=== PATIENT | female | born 1990 | race American Indian/Alaskan Native ===

== ENCOUNTER 2017-04-22 23:49 | Emergency (ER) | payer SELFPAY ==
[2017-04-22 23:59] VITALS: O2SAT 98
[2017-04-23 00:39] LABS: RBC URINE 2 /hpf (0-3); URINE BILIRUBIN NEGATIVE (NEGATIVE); URINE BLOOD NEGATIVE (NEGATIVE); URINE COLOR Yellow (YELLOW); URINE GLUCOSE (UA) NORMAL (Normal); URINE KETONE NEGATIVE (NEGATIVE); URINE LEUKOCYTE ESTERASE NEG Leu/uL (Negative); URINE PROTEIN NEGATIVE (NEGATIVE); WBC URINE 2 /hpf (0-5)
[2017-04-23] MEDS ORDERED: cefTRIAXone (Rocephin) 250 mg Inj IM STA (02:05)
--- NOTE | 2017-04-23 02:05 | C.PDOC ---
History Of Present Illness 26 year old female presents to the ER with a complaint of lower abdominal pain and foul smelling vaginal discharge. Patient states she had unprotected sex with her partner 2 weeks ago. Denies Hx of STD, dysuria, hematuria, fever, chills, nausea, or vomiting. Time Seen by Provider: 04/23/17 00:13 Chief Complaint (Nursing): Female Genitourinary History Per: Patient History/Exam Limitations: no limitations Onset/Duration Of Symptoms: Days Current Symptoms Are (Timing): Still Present Quality Of Discomfort: Unable To Describe Associated Symptoms: denies: Fever, Chills, Nausea, Vomiting, Urinary Symptoms Alleviating Factors: None Recent travel outside of the [place]: No Abnormal Vaginal Bleeding: No Past Medical History Reviewed: Historical Data, Nursing Documentation, Vital Signs Vital Signs: Last Vital Signs Temp 98.1 F 04/23/17 02:38 Pulse 84 04/23/17 02:38 Resp 16 04/23/17 02:38 BP 132/84 04/23/17 02:38 Pulse Ox 98 04/23/17 04:17 - Medical History PMH: No Chronic Diseases Surgical History: No Surg Hx Family History: States: Unknown Family Hx - Social History Hx Alcohol Use: Yes Hx Substance Use: Yes (MARIJUANA) - Immunization History Hx Tetanus Toxoid Vaccination: Yes Hx Influenza Vaccination: No Hx Pneumococcal Vaccination: No Review Of Systems Constitutional: Negative for: Fever, Chills Gastrointestinal: Positive for: Abdominal Pain. Negative for: Nausea, Vomiting Genitourinary: Positive for: Vaginal Discharge. Negative for: Dysuria, Frequency, Hematuria Physical Exam - Physical Exam Appears: Non-toxic, No Acute Distress Skin: Normal Color, Warm, Dry Head: Atraumatic, Normacephalic Oral Mucosa: Moist Chest: Symmetrical, No Tenderness Cardiovascular: Rhythm Regular Respiratory: Normal Breath Sounds, No Rales, No Rhonchi, No Wheezing Gastrointestinal/Abdominal: Soft, No Tenderness, No Guarding, No Rebound Back: No CVA Tenderness Pelvic: Normal External Exam, Vaginal Discharge (Thick white), Cervical Motion Tenderness, No Adnexal Tenderness, No Tender Uterus Neurological/Psych: Oriented x3, Normal Speech, Normal Cognition ED Course And Treatment O2 Sat by Pulse Oximetry: 98 (Room air) Pulse Ox Interpretation: Normal Medical Decision Making Medical Decision Making: pt with low ab pain, foul smelling vaginal discharge, s/p unprotected sex. +cmt , tx for cervicitis. 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 Recommend you do not have unprotected sex until further evaluated and full STD testing done. Instructions: Cervicitis (ED) Forms: [facility] (Croatian), General Discharge Instructions - Clinical Impression Clinical Impression: Cervicitis - Scribe Statement The provider has reviewed the documentation as recorded by the Scribe Nacho Carver All medical record entries made by the Scribe were at my direction and personally dictated by me. I have reviewed the chart and agree that the record accurately reflects my personal performance of the history, physical exam, medical decision making, and the department course for this patient. I have also personally directed, reviewed, and agree with the discharge instructions and disposition.
[2017-04-23 02:39] VITALS: BP 132/84; PULSE 84; RESP 16; TEMP 98.1
== END 2017-04-23 02:43 | disposition home or self-care (01) ==
LOC: C.ER 23:49
DX: N72 Inflammatory disease of cervix uteri (principal)
CPT/HCPCS: 81001; 87491; 87591; 96372; 99284; J0696

== ENCOUNTER 2017-08-18 13:23 | Inpatient (IN) | payer MEDICAID ==
[2017-08-18] MEDS ORDERED: Heparin25000 units/250ml 0.45% NS BAG IV ONE (13:31)
[2017-08-18] MEDS ORDERED: Iodixanol 320 MG/ML 200 ML BOTTLE IV ONE (13:51)
[2017-08-18] MEDS ORDERED: Metoprolol Succinate 50 mg XL Tab PO STA (13:51)
[2017-08-18] MEDS ORDERED: Aspirin 325 mg EC Tablets PO STA (13:51)
[2017-08-18] MEDS ORDERED: Nitroglycerin 2% Ointment Foilpak UD TOP STA (13:54)
[2017-08-18] MEDS ORDERED: Phenylephrine 10 mg/ml Inj ONE (13:55)
[2017-08-18] MEDS ORDERED: Nitroglycerin 2% Ointment Foilpak UD TOP ONE (13:58)
--- NOTE | 2017-08-18 14:07 | RAD ---
PROCEDURE: CHEST RADIOGRAPH, 1 VIEW HISTORY: Chest pain COMPARISON: None available. FINDINGS: LUNGS: The lungs are well inflated and clear. PLEURA: No pneumothorax or pleural fluid seen. CARDIOVASCULAR: Normal. OSSEOUS STRUCTURES: No significant abnormalities. VISUALIZED UPPER ABDOMEN: Normal. OTHER FINDINGS: None. IMPRESSION: No active pulmonary disease.
[2017-08-18 14:09] LABS: BASO # 0.1 K/uL (0.0-0.2); BASO % 0.6 % (0.0-2.0); EOS % 0.2 % (0.0-4.0); HEMOGLOBIN 11.8 g/dL (11.0-16.0); LYMPH # 2.8 K/uL (1.0-4.3); MEAN CELL VOLUME 79.6 fL (81.0-99.0); MEAN CORPUSCULAR HEMOGLOBIN 26.4 pg (27.0-31.0); MEAN CORPUSCULAR HGB CONC 33.2 g/dL (33.0-37.0); MEAN PLATELET VOLUME 8.3 fL (7.2-11.7); MONO # 0.6 K/uL (0.0-0.8); MONO % 6.1 % (0.0-10.0); NEUT # 7.1 K/uL (1.8-7.0); NEUT % 67.1 % (50.0-75.0); RBC 4.47 Mil/uL (3.80-5.20); RED CELL DISTRIBUTION WIDTH 15.7 % (11.5-14.5); WHITE BLOOD COUNT 10.6 K/uL (4.8-10.8)
[2017-08-18 14:18] LABS: INR 1.1; PROTHROMBIN TIME 12.7 SECONDS (9.7-12.2)
[2017-08-18] MEDS ORDERED: Heparin 25,000units in D5W 250 ML IV ONE (14:21)
[2017-08-18 14:31] LABS: ALBUMIN 4.3 g/dL (3.5-5.0); ALT/SGPT 32 U/L (9-52); AST/SGOT 30 U/L (14-36); BLOOD UREA NITROGEN 6 mg/dL (7-17); CALCIUM 9.1 mg/dl (8.6-10.4); GFR AFRICAN-AMERICAN > 60; GFR NON-AFRICAN AMERICAN > 60
[2017-08-18] MEDS ORDERED: Heparin25000 units/250ml 1/2NS 25,000 UNITS/250 ML BAG IV PRN (14:31)
[2017-08-18 14:43] LABS: B-TYPE NATRIURETIC PEPTIDE 131 pg/mL (0-450)
--- NOTE | 2017-08-18 14:46 | C.PDOC ---
History Of Present Illness 27 y/o female presents to the ER complaining of left sided chest pain which has been present for the past 2 days. Patient describes the pain as aching and rates the pain 8/10. Patient denies having SOB, radiation of CP, and cardiac hx. Patient denies using cigarettes and cocaine. Patient admits to occasional ETOH use.Patient notes that she has an unknown family hx as she does not know her parents.Of note, patient is working overnight and has gained weight by 4 pant sizes. Chief Complaint (Nursing): Chest Pain History Per: Patient History/Exam Limitations: no limitations Onset/Duration Of Symptoms: Days Current Symptoms Are (Timing): Still Present Severity: Moderate Quality: Aching Past Medical History Reviewed: Historical Data, Nursing Documentation, Vital Signs Vital Signs: Last Vital Signs Temp 98.4 F 08/18/17 16:32 Pulse 97 H 08/18/17 16:32 Resp 20 08/18/17 16:32 BP 132/83 08/18/17 16:32 Pulse Ox 100 08/18/17 18:16 - Medical History PMH: No Chronic Diseases Surgical History: No Surg Hx Family History: States: Unknown Family Hx - Social History Hx Alcohol Use: Yes Hx Substance Use: Yes (MARIJUANA) - Immunization History Hx Tetanus Toxoid Vaccination: Yes Hx Influenza Vaccination: No Hx Pneumococcal Vaccination: No Review Of Systems Except As Marked, All Systems Reviewed And Found Negative. Constitutional: Positive for: Other (+4 pant size weight gain ). Negative for: Fever, Chills Cardiovascular: Positive for: Chest Pain Respiratory: Negative for: Shortness of Breath Physical Exam - Physical Exam Appears: Non-toxic, No Acute Distress, Other (morbidly obese) Skin: Normal Color, Warm Head: Atraumatic, Normacephalic Nose: Normal Oral Mucosa: Moist Neck: Supple Chest: Symmetrical Cardiovascular: Rhythm Regular Respiratory: Normal Breath Sounds, No Rales, No Rhonchi, No Wheezing Neurological/Psych: Oriented x3, Normal Speech ED Course And Treatment - Laboratory Results Result Diagrams: 08/18/17 14:04 08/18/17 14:04 ECG: Interpreted By Me ECG Rhythm: Sinus Rhythm ECG Interpretation: Abnormal Interpretation Of ECG: EKG #1: ST elevations I, II, AVL, V4, v5, v6. diffuse, RI depressions throughout. (chest pain 8/10). EKG #2: same persistent changes ( chest pain 0/10) O2 Sat by Pulse Oximetry: 100 Pulse Ox Interpretation: Normal - Radiology CXR: Interpreted by Me CXR Interpretation: Yes: No Acute Disease - CT Scan/US CT-Chest Other Rad Studies (CT/US): Read By Radiologist, Radiology Report Reviewed CT/US Interpretation: IMPRESSION: Technically limited examination. Unable to exclude pulmonary embolism on the basis of this examination. No large central or lobar pulmonary embolus identified. No acute infiltrate. Medical Decision Making Medical Decision Makin: Code Heart called- CP 12/29, protocols instituted. protocol meds given 1335: texted EKG to Dr. Yi 1355: d/w Dr. Yi- defers Cath labs, prefers CT for PE and bedside cardiac ech 1355: d/w Dr. Light and Dr. Cho- will support as able 1405: chest pain zero 1415: d/w Dr. Cho- req bedside Card Echo, pending lab analyst 1440: d/w Dr. Cho- bedside echo reviewed as wnl, EKG with diffuse RI depressions and trop neg. d/c heparin drip and admit to [facility]. no Cath labs today, requests PE study 1450: d/w Hospitalist- Dr. Rubin- ok to admit. Disposition Doctor Will See Patient In The: Hospital Counseled Patient/Family Regarding: Studies Performed, Diagnosis - Disposition Disposition: HOSPITALIZED Disposition Time: 14:50 Condition: GOOD - POA Core Measure Indicators: Code Heart - Clinical Impression Clinical Impression: Chest pain - Scribe Statement The provider has reviewed the documentation as recorded by the Carlos Botello Provider Attestation: All medical record entries made by the Anaiibneymar were at my direction and personally dictated by me. I have reviewed the chart and agree that the record accurately reflects my personal performance of the history, physical exam, medical decision making, and the department course for this patient. I have also personally directed, reviewed, and agree with the discharge instructions and disposition.
[2017-08-18 14:47] LABS: SQUAMOUS EPITHIAL 20 /hpf (0-5); URINE BACTERIA RARE (<OCC); URINE BILIRUBIN NEGATIVE (NEGATIVE); URINE BLOOD 1+ (NEGATIVE); URINE CLARITY Hazy (Clear); URINE GLUCOSE (UA) NORMAL (Normal); URINE LEUKOCYTE ESTERASE 3+ Leu/uL (Negative); URINE PROTEIN NEGATIVE (NEGATIVE)
[2017-08-18 14:49] LABS: HCG,QUALITATIVE URINE NEGATIVE (NEGATIVE)
[2017-08-18 14:50] LABS: URINE COLOR YELLOW (YELLOW)
[2017-08-18 15:11] LABS: BARBITURATES, UR NEGATIVE (NEGATIVE); BENZODIAZEPINES, UR NEGATIVE (NEGATIVE); OPIATES, UR NEGATIVE (NEGATIVE); PHENCYCLIDINE, UR NEGATIVE (NEGATIVE)
[2017-08-18] MEDS ORDERED: Iodixanol 320 MG/ML 100 ML BOTTLE IV ONE (15:14)
--- NOTE | 2017-08-18 15:37 | RAD ---
HISTORY: Chest pain COMPARISON: 08/18/2017 at 1:59 p.m. FINDINGS: LUNGS: The lungs are clear. PLEURA: No significant pleural effusion identified, no pneumothorax apparent. CARDIOVASCULAR: Normal. OSSEOUS STRUCTURES: No significant abnormalities. VISUALIZED UPPER ABDOMEN: Normal. OTHER FINDINGS: None. IMPRESSION: No active pulmonary disease.
[2017-08-18 15:52] VITALS: RESP 20
--- NOTE | 2017-08-18 16:29 | CT ---
PROCEDURE: CT Chest with contrast (Pulmonary Angiogram) HISTORY: code heart v PE COMPARISON: None available. TECHNIQUE: Axial computed tomography images were obtained of the chest in the pulmonary arterial phase of enhancement. Coronal and sagittal reformatted images were created and reviewed. Intravenous contrast dose: 100 mL Visipaque 320 Radiation dose: Total exam DLP = 592.55 mGy-cm. This CT exam was performed using one or more of the following dose reduction techniques: Automated exposure control, adjustment of the mA and/or kV according to patient size, and/or use of iterative reconstruction technique. FINDINGS: PULMONARY ARTERIES: Evaluation technically limited. Unable to evaluate segmental and subsegmental pulmonary arteries on the basis of this examination. No large central or lobar pulmonary embolus identified. AORTA: No acute findings. No thoracic aortic aneurysm. LUNGS: No pulmonary infiltrate. Bilateral lower lobe linear scar/ atelectasis. Linear scar/ atelectasis also seen in the anterior right upper lobe and in right middle lobe, medially. No pulmonary mass. PLEURAL SPACES: Unremarkable. No effusion or pneuomothorax. HEART: Unremarkable. No cardiomegaly. No significant pericardial effusion. LYMPH NODES: No lymphadenopathy. BONES, CHEST WALL: Unremarkable. No fracture or destructive lesion OTHER FINDINGS: Unremarkable. IMPRESSION: Technically limited examination. Unable to exclude pulmonary embolism on the basis of this examination. No large central or lobar pulmonary embolus identified. No acute infiltrate.
--- NOTE | 2017-08-18 17:02 | CP.PCM.HP ---
<Chay Lr - Last Filed: 08/18/17 16:48> History of Present Illness - History of Present Illness History of Present Illness: PGY-1 H&P for Dr. Rubin CC: Chest Pain This is a 27 year old female with no significant PMHx who presented with left sided chest pain. Patient states that this began on Monday as she was waiting for the bus. Pain has been constant since then and has escalated to 10/ 10. Pain is described as a pressure like sensation without radiation. This is worsened with laying down. Patient is more comfortable sitting upright, and pain was relieved with when given aspirin. Patient states that she has some baseline dyspnea with exertion. She stated that she cannot walk far without getting short of breath. Patient does not sleep with more than one pillow at night and denied snoring. Patient reports that she had some chills yesterday and has a mild dry cough today. Patient denies other sick symptoms. PMHx: denies PSHx: right eyelid surgery in 2017 Allergies: NKDA Social: Denies tobacco, social drinker on the weekends. Uses marijuana. 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 Family Hx: Patient is unsure of her biological family history. PMD: denies Home meds: denies Present on Admission - Present on Admission Any Indicators Present on Admission: No Review of Systems - Constitutional Constitutional: Chills (yesterday). absent: Fever - EENT Eyes: absent: Change in Vision Ears: absent: Decreased Hearing Nose/Mouth/Throat: absent: Nasal Congestion - Cardiovascular Cardiovascular: Chest Pain. absent: Palpitations - Respiratory Respiratory: Cough (mild dry cough), Dyspnea (chronic with exertion) - Gastrointestinal Gastrointestinal: absent: Abdominal Pain, Constipation, Diarrhea, Nausea, Vomiting - Genitourinary Genitourinary: absent: Dysuria - Musculoskeletal Musculoskeletal: absent: Muscle Weakness - Integumentary Integumentary: absent: Rash - Neurological Neurological: absent: Dizziness, Weakness - Psychiatric Psychiatric: Anxiety - Endocrine Endocrine: absent: Palpitations Past Patient History - Infectious Disease Hx of Infectious Diseases: None - Past Social History Smoking Status: Never Smoked - PSYCHIATRIC Hx Substance Use: Yes (MARIJUANA) - SURGICAL HISTORY Hx Surgeries: No - ANESTHESIA Hx Anesthesia: No Meds Allergies/Adverse Reactions: Allergies Allergy/AdvReac Type Severity Reaction Status Date / Time No Known Allergies Allergy Verified 08/18/17 13:38 Physical Exam - Constitutional Appears: No Acute Distress - Head Exam Head Exam: ATRAUMATIC, NORMOCEPHALIC - Eye Exam Eye Exam: EOMI Pupil Exam: Mydriatic (Reactive to light) - ENT Exam ENT Exam: Mucous Membranes Moist - Respiratory Exam Respiratory Exam: Clear to Auscultation Bilateral, NORMAL BREATHING PATTERN. absent: Rales, Rhonchi, Wheezes - Cardiovascular Exam Cardiovascular Exam: REGULAR RHYTHM, +S1, +S2. absent: JVD - GI/Abdominal Exam GI & Abdominal Exam: Distended (obese body habitus), Normal Bowel Sounds, Soft. absent: Tenderness - Extremities Exam Extremities exam: Positive for: pedal edema (trace bilateral), pedal pulses present. Negative for: tenderness - Back Exam Back exam: absent: CVA tenderness (L), CVA tenderness (R) - Neurological Exam Neurological exam: Alert, CN II-XII Intact, Oriented x3 - Psychiatric Exam Psychiatric exam: Anxious - Skin Skin Exam: Dry, Warm Results - Vital Signs Recent Vital Signs: Last Vital Signs Temp 98.4 F 08/18/17 16:32 Pulse 97 H 08/18/17 16:32 Resp 20 08/18/17 16:32 BP 132/83 08/18/17 16:32 Pulse Ox 100 08/18/17 16:42 - Labs Result Diagrams: 08/18/17 14:04 08/18/17 14:04 Labs: Laboratory Results - last 24 hr 08/18/17 08/18/17 08/18/17 13:52 14:04 14:04 WBC 10.6 RBC 4.47 Hgb 11.8 Hct 35.6 MCV 79.6 L MCH 26.4 L MCHC 33.2 RDW 15.7 H Plt Count 286 MPV 8.3 Neut % (Auto) 67.1 Lymph % (Auto) 26.0 [place] % (Auto) 6.1 Eos % (Auto) 0.2 Baso % (Auto) 0.6 Neut # (Auto) 7.1 H Lymph # (Auto) 2.8 [place] # (Auto) 0.6 Eos # (Auto) 0.0 Baso # (Auto) 0.1 PT 12.7 H INR 1.1 APTT 29 D-Dimer, Quantitative Sodium Potassium Chloride Carbon Dioxide Anion Gap BUN Creatinine Est GFR ( Amer) Est GFR (Non-Af Amer) POC Glucose (mg/dL) 88 Random Glucose Hemoglobin A1c Calcium Total Bilirubin AST ALT Alkaline Phosphatase Troponin I NT-Pro-B Natriuret Pep Total Protein Albumin Globulin Albumin/Globulin Ratio Free T4 TSH 3rd Generation Beta HCG, Quant Urine Color Urine Clarity Urine pH Ur Specific [place] Urine Protein Urine Glucose (UA) Urine Ketones Urine Blood Urine Nitrate Urine Bilirubin Urine Urobilinogen Ur Leukocyte Esterase Urine WBC (Auto) Urine RBC (Auto) Ur Squamous Epith Cells Urine Bacteria Urine HCG, Qual Urine Opiates Screen Urine Methadone Screen Ur Barbiturates Screen Ur Phencyclidine Scrn Ur Amphetamines Screen U Benzodiazepines Scrn U Oth Cocaine Metabols U Cannabinoids Screen Blood Type Antibody Screen 08/18/17 08/18/17 08/18/17 14:04 14:04 14:04 WBC RBC Hgb Hct MCV MCH MCHC RDW Plt Count MPV Neut % (Auto) Lymph % (Auto) [place] % (Auto) Eos % (Auto) Baso % (Auto) Neut # (Auto) Lymph # (Auto) [place] # (Auto) Eos # (Auto) Baso # (Auto) PT INR APTT D-Dimer, Quantitative Sodium 142 Potassium 3.6 Chloride 102 Carbon Dioxide 24 Anion Gap 19 BUN 6 L Creatinine 0.7 Est GFR ( Amer) > 60 Est GFR (Non-Af Amer) > 60 POC Glucose (mg/dL) Random Glucose 87 Hemoglobin A1c Calcium 9.1 Total Bilirubin 0.9 AST 30 ALT 32 Alkaline Phosphatase 70 Troponin I < 0.0120 NT-Pro-B Natriuret Pep 131 Total Protein 8.6 H Albumin 4.3 Globulin 4.3 H Albumin/Globulin Ratio 1.0 Free T4 TSH 3rd Generation Beta HCG, Quant Urine Color Urine Clarity Urine pH Ur Specific [place] Urine Protein Urine Glucose (UA) Urine Ketones Urine Blood Urine Nitrate Urine Bilirubin Urine Urobilinogen Ur Leukocyte Esterase Urine WBC (Auto) Urine RBC (Auto) Ur Squamous Epith Cells Urine Bacteria Urine HCG, Qual Urine Opiates Screen Urine Methadone Screen Ur Barbiturates Screen Ur Phencyclidine Scrn Ur Amphetamines Screen U Benzodiazepines Scrn U Oth Cocaine Metabols U Cannabinoids Screen Blood Type AB POSITIVE Antibody Screen Negative 08/18/17 08/18/17 08/18/17 14:04 14:32 14:32 WBC RBC Hgb Hct MCV MCH MCHC RDW Plt Count MPV Neut % (Auto) Lymph % (Auto) [place] % (Auto) Eos % (Auto) Baso % (Auto) Neut # (Auto) Lymph # (Auto) [place] # (Auto) Eos # (Auto) Baso # (Auto) PT INR APTT D-Dimer, Quantitative Sodium Potassium Chloride Carbon Dioxide Anion Gap BUN Creatinine Est GFR ( Amer) Est GFR (Non-Af Amer) POC Glucose (mg/dL) Random Glucose Hemoglobin A1c Calcium Total Bilirubin AST ALT Alkaline Phosphatase Troponin I NT-Pro-B Natriuret Pep Total Protein Albumin Globulin Albumin/Globulin Ratio Free T4 TSH 3rd Generation Beta HCG, Quant < 2.39 Urine Color Yellow Urine Clarity Hazy Urine pH 5.0 Ur Specific [place] 1.018 Urine Protein Negative Urine Glucose (UA) Normal Urine Ketones 1+ H Urine Blood 1+ H Urine Nitrate Negative Urine Bilirubin Negative Urine Urobilinogen 4.0 H Ur Leukocyte Esterase 3+ H Urine WBC (Auto) 13 H Urine RBC (Auto) 3 Ur Squamous Epith Cells 20 H Urine Bacteria Rare Urine HCG, Qual Negative Urine Opiates Screen Negative Urine Methadone Screen Negative Ur Barbiturates Screen Negative Ur Phencyclidine Scrn Negative Ur Amphetamines Screen Negative U Benzodiazepines Scrn Negative U Oth Cocaine Metabols Negative U Cannabinoids Screen Positive H Blood Type Antibody Screen 08/18/17 08/18/17 08/18/17 15:15 15:15 15:35 WBC RBC Hgb Hct MCV MCH MCHC RDW Plt Count MPV Neut % (Auto) Lymph % (Auto) [place] % (Auto) Eos % (Auto) Baso % (Auto) Neut # (Auto) Lymph # (Auto) [place] # (Auto) Eos # (Auto) Baso # (Auto) PT INR APTT D-Dimer, Quantitative 996 H Sodium Potassium Chloride Carbon Dioxide Anion Gap BUN Creatinine Est GFR ( Amer) Est GFR (Non-Af Amer) POC Glucose (mg/dL) Random Glucose Hemoglobin A1c 5.7 Calcium Total Bilirubin AST ALT Alkaline Phosphatase Troponin I NT-Pro-B Natriuret Pep Total Protein Albumin Globulin Albumin/Globulin Ratio Free T4 0.85 TSH 3rd Generation Beta HCG, Quant Urine Color Urine Clarity Urine pH Ur Specific [place] Urine Protein Urine Glucose (UA) Urine Ketones Urine Blood Urine Nitrate Urine Bilirubin Urine Urobilinogen Ur Leukocyte Esterase Urine WBC (Auto) Urine RBC (Auto) Ur Squamous Epith Cells Urine Bacteria Urine HCG, Qual Urine Opiates Screen Urine Methadone Screen Ur Barbiturates Screen Ur Phencyclidine Scrn Ur Amphetamines Screen U Benzodiazepines Scrn U Oth Cocaine Metabols U Cannabinoids Screen Blood Type Antibody Screen 08/18/17 15:40 WBC RBC Hgb Hct MCV MCH MCHC RDW Plt Count MPV Neut % (Auto) Lymph % (Auto) [place] % (Auto) Eos % (Auto) Baso % (Auto) Neut # (Auto) Lymph # (Auto) [place] # (Auto) Eos # (Auto) Baso # (Auto) PT INR APTT D-Dimer, Quantitative Sodium Potassium Chloride Carbon Dioxide Anion Gap BUN Creatinine Est GFR ( Amer) Est GFR (Non-Af Amer) POC Glucose (mg/dL) Random Glucose Hemoglobin A1c Calcium Total Bilirubin AST ALT Alkaline Phosphatase Troponin I NT-Pro-B Natriuret Pep Total Protein Albumin Globulin Albumin/Globulin Ratio Free T4 TSH 3rd Generation 1.40 Beta HCG, Quant Urine Color Urine Clarity Urine pH Ur Specific [place] Urine Protein Urine Glucose (UA) Urine Ketones Urine Blood Urine Nitrate Urine Bilirubin Urine Urobilinogen Ur Leukocyte Esterase Urine WBC (Auto) Urine RBC (Auto) Ur Squamous Epith Cells Urine Bacteria Urine HCG, Qual Urine Opiates Screen Urine Methadone Screen Ur Barbiturates Screen Ur Phencyclidine Scrn Ur Amphetamines Screen U Benzodiazepines Scrn U Oth Cocaine Metabols U Cannabinoids Screen Blood Type Antibody Screen Assessment & Plan - Assessment and Plan (Free Text) Plan: Pericarditis Cardiology consult, Dr. Cho, help appreciated Recommendations as follows: * Aspirin 325 mg PO BID for 1 month * Colchicine 0.6 mg PO daily for 14 days * Pepcid 20 mg PO BID Bedside echo normal ventricular function per cardiology EKG showing diffuse ST segment elevations in non-specific pattern and first troponin negative f/u DIANE panel and EKGx2 f/u Lipid panel f/u thyroid studies CTA chest PE protocol shows no large central PE but cannot rule out segmental and subsegmental ones Asymptomatic Bacteruria Repeat UA in the AM Elevated Blood Pressure Possibly due to pain versus essential hypertension Was given Toprol XL 50 mg in the ED Monitor BP Impaired Glucose Tolerance Hemoglobin A1c 5.7 Dietitian Referral Prophylaxis Heart Healthy Diet 2gm sodium Pepcid 20 mg PO BID Lovenox 40 mg SC daily Discussed with Dr. Caryn Lr PGY-1 <Fawn Rubin V - Last Filed: 08/18/17 21:56> Results - Vital Signs Recent Vital Signs: Last Vital Signs Temp 98.4 F 08/18/17 16:32 Pulse 88 08/18/17 18:34 Resp 20 08/18/17 16:32 BP 132/83 08/18/17 16:32 Pulse Ox 100 08/18/17 18:17 - Labs Result Diagrams: 08/18/17 14:04 08/18/17 14:04 Labs: Laboratory Results - last 24 hr 08/18/17 08/18/17 08/18/17 13:52 14:04 14:04 WBC 10.6 RBC 4.47 Hgb 11.8 Hct 35.6 MCV 79.6 L MCH 26.4 L MCHC 33.2 RDW 15.7 H Plt Count 286 MPV 8.3 Neut % (Auto) 67.1 Lymph % (Auto) 26.0 [place] % (Auto) 6.1 Eos % (Auto) 0.2 Baso % (Auto) 0.6 Neut # (Auto) 7.1 H Lymph # (Auto) 2.8 [place] # (Auto) 0.6 Eos # (Auto) 0.0 Baso # (Auto) 0.1 PT 12.7 H INR 1.1 APTT 29 D-Dimer, Quantitative Sodium Potassium Chloride Carbon Dioxide Anion Gap BUN Creatinine Est GFR ( Amer) Est GFR (Non-Af Amer) POC Glucose (mg/dL) 88 Random Glucose Hemoglobin A1c Calcium Total Bilirubin AST ALT Alkaline Phosphatase Total Creatine Kinase CK-MB (Mass) Troponin I NT-Pro-B Natriuret Pep Total Protein Albumin Globulin Albumin/Globulin Ratio Free T4 TSH 3rd Generation Beta HCG, Quant Urine Color Urine Clarity Urine pH Ur Specific [place] Urine Protein Urine Glucose (UA) Urine Ketones Urine Blood Urine Nitrate Urine Bilirubin Urine Urobilinogen Ur Leukocyte Esterase Urine WBC (Auto) Urine RBC (Auto) Ur Squamous Epith Cells Urine Bacteria Urine HCG, Qual Urine Opiates Screen Urine Methadone Screen Ur Barbiturates Screen Ur Phencyclidine Scrn Ur Amphetamines Screen U Benzodiazepines Scrn U Oth Cocaine Metabols U Cannabinoids Screen Blood Type Antibody Screen 08/18/17 08/18/17 08/18/17 14:04 14:04 14:04 WBC RBC Hgb Hct MCV MCH MCHC RDW Plt Count MPV Neut % (Auto) Lymph % (Auto) [place] % (Auto) Eos % (Auto) Baso % (Auto) Neut # (Auto) Lymph # (Auto) [place] # (Auto) Eos # (Auto) Baso # (Auto) PT INR APTT D-Dimer, Quantitative Sodium 142 Potassium 3.6 Chloride 102 Carbon Dioxide 24 Anion Gap 19 BUN 6 L Creatinine 0.7 Est GFR ( Amer) > 60 Est GFR (Non-Af Amer) > 60 POC Glucose (mg/dL) Random Glucose 87 Hemoglobin A1c Calcium 9.1 Total Bilirubin 0.9 AST 30 ALT 32 Alkaline Phosphatase 70 Total Creatine Kinase CK-MB (Mass) Troponin I < 0.0120 NT-Pro-B Natriuret Pep 131 Total Protein 8.6 H Albumin 4.3 Globulin 4.3 H Albumin/Globulin Ratio 1.0 Free T4 TSH 3rd Generation Beta HCG, Quant Urine Color Urine Clarity Urine pH Ur Specific [place] Urine Protein Urine Glucose (UA) Urine Ketones Urine Blood Urine Nitrate Urine Bilirubin Urine Urobilinogen Ur Leukocyte Esterase Urine WBC (Auto) Urine RBC (Auto) Ur Squamous Epith Cells Urine Bacteria Urine HCG, Qual Urine Opiates Screen Urine Methadone Screen Ur Barbiturates Screen Ur Phencyclidine Scrn Ur Amphetamines Screen U Benzodiazepines Scrn U Oth Cocaine Metabols U Cannabinoids Screen Blood Type AB POSITIVE Antibody Screen Negative 08/18/17 08/18/17 08/18/17 14:04 14:32 14:32 WBC RBC Hgb Hct MCV MCH MCHC RDW Plt Count MPV Neut % (Auto) Lymph % (Auto) [place] % (Auto) Eos % (Auto) Baso % (Auto) Neut # (Auto) Lymph # (Auto) [place] # (Auto) Eos # (Auto) Baso # (Auto) PT INR APTT D-Dimer, Quantitative Sodium Potassium Chloride Carbon Dioxide Anion Gap BUN Creatinine Est GFR ( Amer) Est GFR (Non-Af Amer) POC Glucose (mg/dL) Random Glucose Hemoglobin A1c Calcium Total Bilirubin AST ALT Alkaline Phosphatase Total Creatine Kinase CK-MB (Mass) Troponin I NT-Pro-B Natriuret Pep Total Protein Albumin Globulin Albumin/Globulin Ratio Free T4 TSH 3rd Generation Beta HCG, Quant < 2.39 Urine Color Yellow Urine Clarity Hazy Urine pH 5.0 Ur Specific [place] 1.018 Urine Protein Negative Urine Glucose (UA) Normal Urine Ketones 1+ H Urine Blood 1+ H Urine Nitrate Negative Urine Bilirubin Negative Urine Urobilinogen 4.0 H Ur Leukocyte Esterase 3+ H Urine WBC (Auto) 13 H Urine RBC (Auto) 3 Ur Squamous Epith Cells 20 H Urine Bacteria Rare Urine HCG, Qual Negative Urine Opiates Screen Negative Urine Methadone Screen Negative Ur Barbiturates Screen Negative Ur Phencyclidine Scrn Negative Ur Amphetamines Screen Negative U Benzodiazepines Scrn Negative U Oth Cocaine Metabols Negative U Cannabinoids Screen Positive H Blood Type Antibody Screen 08/18/17 08/18/17 08/18/17 15:15 15:15 15:35 WBC RBC Hgb Hct MCV MCH MCHC RDW Plt Count MPV Neut % (Auto) Lymph % (Auto) [place] % (Auto) Eos % (Auto) Baso % (Auto) Neut # (Auto) Lymph # (Auto) [place] # (Auto) Eos # (Auto) Baso # (Auto) PT INR APTT D-Dimer, Quantitative 996 H Sodium Potassium Chloride Carbon Dioxide Anion Gap BUN Creatinine Est GFR ( Amer) Est GFR (Non-Af Amer) POC Glucose (mg/dL) Random Glucose Hemoglobin A1c 5.7 Calcium Total Bilirubin AST ALT Alkaline Phosphatase Total Creatine Kinase CK-MB (Mass) Troponin I NT-Pro-B Natriuret Pep Total Protein Albumin Globulin Albumin/Globulin Ratio Free T4 0.85 TSH 3rd Generation Beta HCG, Quant Urine Color Urine Clarity Urine pH Ur Specific [place] Urine Protein Urine Glucose (UA) Urine Ketones Urine Blood Urine Nitrate Urine Bilirubin Urine Urobilinogen Ur Leukocyte Esterase Urine WBC (Auto) Urine RBC (Auto) Ur Squamous Epith Cells Urine Bacteria Urine HCG, Qual Urine Opiates Screen Urine Methadone Screen Ur Barbiturates Screen Ur Phencyclidine Scrn Ur Amphetamines Screen U Benzodiazepines Scrn U Oth Cocaine Metabols U Cannabinoids Screen Blood Type Antibody Screen 08/18/17 08/18/17 15:40 20:14 WBC RBC Hgb Hct MCV MCH MCHC RDW Plt Count MPV Neut % (Auto) Lymph % (Auto) [place] % (Auto) Eos % (Auto) Baso % (Auto) Neut # (Auto) Lymph # (Auto) [place] # (Auto) Eos # (Auto) Baso # (Auto) PT INR APTT D-Dimer, Quantitative Sodium Potassium Chloride Carbon Dioxide Anion Gap BUN Creatinine Est GFR ( Amer) Est GFR (Non-Af Amer) POC Glucose (mg/dL) Random Glucose Hemoglobin A1c Calcium Total Bilirubin AST ALT Alkaline Phosphatase Total Creatine Kinase 143 H CK-MB (Mass) < 0.22 Troponin I < 0.0120 NT-Pro-B Natriuret Pep Total Protein Albumin Globulin Albumin/Globulin Ratio Free T4 TSH 3rd Generation 1.40 Beta HCG, Quant Urine Color Urine Clarity Urine pH Ur Specific [place] Urine Protein Urine Glucose (UA) Urine Ketones Urine Blood Urine Nitrate Urine Bilirubin Urine Urobilinogen Ur Leukocyte Esterase Urine WBC (Auto) Urine RBC (Auto) Ur Squamous Epith Cells Urine Bacteria Urine HCG, Qual Urine Opiates Screen Urine Methadone Screen Ur Barbiturates Screen Ur Phencyclidine Scrn Ur Amphetamines Screen U Benzodiazepines Scrn U Oth Cocaine Metabols U Cannabinoids Screen Blood Type Antibody Screen Attending/Attestation - Attestation I have personally seen and examined this patient.: Yes I have fully participated in the care of the patient.: Yes I have reviewed all pertinent clinical information: Yes Notes (Text): Patient seen, examined and case discussed with emergency room physician, cardiology, and medical equipment repair technician. As part of [facility] protocol, I responded to [facility] called for this patient which what appeared to be [facility] [place] [place] initially. Discussion between ER, assistant principal managing partner [employer] [place], Dr Yi, and chalk machine operator Dr. Cho in regards to further management. Dr. Yi hold cath, review labs and PE protocol to rule out PE. Dr. Cho had performed bedside echo which appear heart LV is normal. Cath cancelled. Reviewed EKG determined EKG to reflect pericarditis. Per [facility] protocol, patient received brilinta 180mg PO X1, Heparin bolus, heparin drip. Patient also received Toprol XL 50mg X1, and Nitrobid. Following Nitrobid chest pain resolved. Patient is a 27 year old Female no prior medical history except for obesity who reported chest pain that started Monday night and continued to this morning which prompted her to come to the emergency room. Patient reports she attempted Advil liquid and mother's albuterol to try to relieve her symptoms yesterday. Patient reports she has recently lost her insurance and has not seen a doctor in year. 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 Patient admits to cannabis use, and recently drank alcohol this past Monday. Patient denies ilict drug use. Patient is unable to tell me her family medical history at bedside. Patient reports she is gaining weight, has recently gone up in four pants sizes. ED has discussed with cardiology, admit to hospitalist service. Resident has spoken with resident Rahul, on cardiology service, Dr Cho, recommendations for pericarditis as listed below. Patient has elevated d-dimer, CT angio PE ordered. Ct angio does not show large central nor lobar pulmonary embolus identified. no acute infiltrate. Assessment/Plan 1) Pericarditis Chest Pain * Cardiology consult, Dr. Cho, help appreciated * Recommendations as follows: * Aspirin 325 mg PO BID for 1 month * Colchicine 0.6 mg PO daily for 14 days * Pepcid 20 mg PO BID * Bedside echo normal ventricular function per cardiology in the emergency room * EKG showing diffuse ST segment elevations in non-specific pattern and first troponin negative * f/u DIANE panel and EKGx2, 6 hours apart * f/u Lipid panel in AM * f/u thyroid studies * CTA chest PE protocol shows no large central PE but cannot rule out segmental and subsegmental ones * Will order gentle IV hydration to prevent contrast induced nephropathy 2) Asymptomatic Bacteruria * Repeat UA in the AM 3) Elevated Blood Pressure * Possibly due to pain versus essential hypertension * Was given Toprol XL 50 mg in the ED * Monitor BP 4) Impaired Glucose Tolerance * Hemoglobin A1c 5.7 * Dietitian Referral * Will need education in terms of lifestyle modifications to prevent overt diabetes 5) Obesity * Lipid panel in AM * Hemoglobin A1c 5.7 * f/u TSH and Free T4 6) Prophylaxis * Heart Healthy Diet 2gm sodium * Pepcid 20 mg PO BID * Lovenox 40 mg SC daily
[2017-08-18] MEDS ORDERED: Sodium Chloride 0.9% 1,000 ML IV SCH (19:15)
[2017-08-18 20:46] LABS: CK-MB < 0.22 ng/mL (0.0-3.38)
--- NOTE | 2017-08-18 21:42 | CP.PCM.CON ---
History of Present Illness - History of Present Illness History of Present Illness: CC: Chest Pain This is a 27 year old female with no significant PMHx who presented with left sided chest pain. Patient states that this began on Monday as she was waiting for the bus. Pain has been constant since then and has escalated to 10/ 10. Pain is described as a pressure like sensation without radiation. This is worsened with laying down. Patient is more comfortable sitting upright, and pain was relieved with when given aspirin. Patient states that she has some baseline dyspnea with exertion. She stated that she cannot walk far without getting short of breath. Patient does not sleep with more than one pillow at night and denied snoring. Patient reports that she had some chills yesterday and has a mild dry cough today. Patient denies other sick symptoms. PMHx: denies PSHx: right eyelid surgery in 2017 Allergies: NKDA Social: Denies tobacco, social drinker on the weekends. Uses marijuana. 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 Family Hx: Patient is unsure of her biological family history. PMD: denies Home meds: denies Present on Admission - Present on Admission Any Indicators Present on Admission: No Review of Systems - Constitutional Constitutional: Chills (yesterday). absent: Fever - EENT Eyes: absent: Change in Vision Ears: absent: Decreased Hearing Nose/Mouth/Throat: absent: Nasal Congestion - Cardiovascular Cardiovascular: Chest Pain. absent: Palpitations - Respiratory Respiratory: Cough (mild dry cough), Dyspnea (chronic with exertion) - Gastrointestinal Gastrointestinal: absent: Abdominal Pain, Constipation, Diarrhea, Nausea, Vomiting - Genitourinary Genitourinary: absent: Dysuria - Musculoskeletal Musculoskeletal: absent: Muscle Weakness - Integumentary Integumentary: absent: Rash - Neurological Neurological: absent: Dizziness, Weakness - Psychiatric Psychiatric: Anxiety - Endocrine Endocrine: absent: Palpitations Past Patient History - Infectious Disease Hx of Infectious Diseases: None - Past Social History Smoking Status: Never Smoked - PSYCHIATRIC Hx Substance Use: Yes (MARIJUANA) - SURGICAL HISTORY Hx Surgeries: No - ANESTHESIA Hx Anesthesia: No Meds Allergies/Adverse Reactions: Allergies Allergy/AdvReac Type Severity Reaction Status Date / Time No Known Allergies Allergy Verified 08/18/17 13:38 Physical Exam - Constitutional Appears: No Acute Distress - Head Exam Head Exam: ATRAUMATIC, NORMOCEPHALIC - Eye Exam Eye Exam: EOMI Pupil Exam: Mydriatic (Reactive to light) - ENT Exam ENT Exam: Mucous Membranes Moist - Respiratory Exam Respiratory Exam: Clear to Auscultation Bilateral, NORMAL BREATHING PATTERN. absent: Rales, Rhonchi, Wheezes - Cardiovascular Exam Cardiovascular Exam: REGULAR RHYTHM, +S1, +S2. absent: JVD - GI/Abdominal Exam GI & Abdominal Exam: Distended (obese body habitus), Normal Bowel Sounds, Soft. absent: Tenderness - Extremities Exam Extremities exam: Positive for: pedal edema (trace bilateral), pedal pulses present. Negative for: tenderness - Back Exam Back exam: absent: CVA tenderness (L), CVA tenderness (R) - Neurological Exam Neurological exam: Alert, CN II-XII Intact, Oriented x3 - Psychiatric Exam Psychiatric exam: Anxious - Skin Skin Exam: Dry, Warm Past Patient History - Infectious Disease Hx of Infectious Diseases: None - Past Social History Smoking Status: Never Smoked - MUSCULOSKELETAL/RHEUMATOLOGICAL Hx Falls: No - PSYCHIATRIC Hx Substance Use: Yes (marijuana) - SURGICAL HISTORY Hx Surgeries: No - ANESTHESIA Hx Anesthesia: No Meds Allergies/Adverse Reactions: Allergies Allergy/AdvReac Type Severity Reaction Status Date / Time No Known Allergies Allergy Verified 08/18/17 13:38 - Medications Medications: Current Medications Acetaminophen (Tylenol 325mg Tab) 650 mg PO Q6 PRN PRN Reason: pain, fever Aspirin (Aspirin) 325 mg PO BID ON LICENSE OF [facility] Colchicine (Colocrys) 0.6 mg PO DAILY ON LICENSE OF [facility] Last Admin: 08/18/17 18:07 Dose: 0.6 mg Enoxaparin Sodium (Lovenox) 40 mg SC DAILY ON LICENSE OF [facility] Famotidine (Pepcid) 20 mg PO BID ON LICENSE OF [facility] Last Admin: 08/18/17 17:26 Dose: Not Given Sodium Chloride (Sodium Chloride 0.9%) 1,000 mls @ 50 mls/hr IV .Q20H ON LICENSE OF [facility] Stop: 08/19/17 00:01 Last Admin: 08/18/17 19:46 Dose: 50 mls/hr Results - Vital Signs Recent Vital Signs: Last Vital Signs Temp 98.4 F 08/18/17 16:32 Pulse 88 08/18/17 18:34 Resp 20 08/18/17 16:32 BP 132/83 08/18/17 16:32 Pulse Ox 100 08/18/17 18:17 - Labs Result Diagrams: 08/18/17 14:04 08/18/17 14:04 Labs: Laboratory Results - last 24 hr 08/18/17 08/18/17 08/18/17 13:52 14:04 14:04 WBC 10.6 RBC 4.47 Hgb 11.8 Hct 35.6 MCV 79.6 L MCH 26.4 L MCHC 33.2 RDW 15.7 H Plt Count 286 MPV 8.3 Neut % (Auto) 67.1 Lymph % (Auto) 26.0 [place] % (Auto) 6.1 Eos % (Auto) 0.2 Baso % (Auto) 0.6 Neut # (Auto) 7.1 H Lymph # (Auto) 2.8 [place] # (Auto) 0.6 Eos # (Auto) 0.0 Baso # (Auto) 0.1 PT 12.7 H INR 1.1 APTT 29 D-Dimer, Quantitative Sodium Potassium Chloride Carbon Dioxide Anion Gap BUN Creatinine Est GFR ( Amer) Est GFR (Non-Af Amer) POC Glucose (mg/dL) 88 Random Glucose Hemoglobin A1c Calcium Total Bilirubin AST ALT Alkaline Phosphatase Total Creatine Kinase CK-MB (Mass) Troponin I NT-Pro-B Natriuret Pep Total Protein Albumin Globulin Albumin/Globulin Ratio Free T4 TSH 3rd Generation Beta HCG, Quant Urine Color Urine Clarity Urine pH Ur Specific [place] Urine Protein Urine Glucose (UA) Urine Ketones Urine Blood Urine Nitrate Urine Bilirubin Urine Urobilinogen Ur Leukocyte Esterase Urine WBC (Auto) Urine RBC (Auto) Ur Squamous Epith Cells Urine Bacteria Urine HCG, Qual Urine Opiates Screen Urine Methadone Screen Ur Barbiturates Screen Ur Phencyclidine Scrn Ur Amphetamines Screen U Benzodiazepines Scrn U Oth Cocaine Metabols U Cannabinoids Screen Blood Type Antibody Screen 08/18/17 08/18/17 08/18/17 14:04 14:04 14:04 WBC RBC Hgb Hct MCV MCH MCHC RDW Plt Count MPV Neut % (Auto) Lymph % (Auto) [place] % (Auto) Eos % (Auto) Baso % (Auto) Neut # (Auto) Lymph # (Auto) [place] # (Auto) Eos # (Auto) Baso # (Auto) PT INR APTT D-Dimer, Quantitative Sodium 142 Potassium 3.6 Chloride 102 Carbon Dioxide 24 Anion Gap 19 BUN 6 L Creatinine 0.7 Est GFR ( Amer) > 60 Est GFR (Non-Af Amer) > 60 POC Glucose (mg/dL) Random Glucose 87 Hemoglobin A1c Calcium 9.1 Total Bilirubin 0.9 AST 30 ALT 32 Alkaline Phosphatase 70 Total Creatine Kinase CK-MB (Mass) Troponin I < 0.0120 NT-Pro-B Natriuret Pep 131 Total Protein 8.6 H Albumin 4.3 Globulin 4.3 H Albumin/Globulin Ratio 1.0 Free T4 TSH 3rd Generation Beta HCG, Quant Urine Color Urine Clarity Urine pH Ur Specific [place] Urine Protein Urine Glucose (UA) Urine Ketones Urine Blood Urine Nitrate Urine Bilirubin Urine Urobilinogen Ur Leukocyte Esterase Urine WBC (Auto) Urine RBC (Auto) Ur Squamous Epith Cells Urine Bacteria Urine HCG, Qual Urine Opiates Screen Urine Methadone Screen Ur Barbiturates Screen Ur Phencyclidine Scrn Ur Amphetamines Screen U Benzodiazepines Scrn U Oth Cocaine Metabols U Cannabinoids Screen Blood Type AB POSITIVE Antibody Screen Negative 08/18/17 08/18/17 08/18/17 14:04 14:32 14:32 WBC RBC Hgb Hct MCV MCH MCHC RDW Plt Count MPV Neut % (Auto) Lymph % (Auto) [place] % (Auto) Eos % (Auto) Baso % (Auto) Neut # (Auto) Lymph # (Auto) [place] # (Auto) Eos # (Auto) Baso # (Auto) PT INR APTT D-Dimer, Quantitative Sodium Potassium Chloride Carbon Dioxide Anion Gap BUN Creatinine Est GFR ( Amer) Est GFR (Non-Af Amer) POC Glucose (mg/dL) Random Glucose Hemoglobin A1c Calcium Total Bilirubin AST ALT Alkaline Phosphatase Total Creatine Kinase CK-MB (Mass) Troponin I NT-Pro-B Natriuret Pep Total Protein Albumin Globulin Albumin/Globulin Ratio Free T4 TSH 3rd Generation Beta HCG, Quant < 2.39 Urine Color Yellow Urine Clarity Hazy Urine pH 5.0 Ur Specific [place] 1.018 Urine Protein Negative Urine Glucose (UA) Normal Urine Ketones 1+ H Urine Blood 1+ H Urine Nitrate Negative Urine Bilirubin Negative Urine Urobilinogen 4.0 H Ur Leukocyte Esterase 3+ H Urine WBC (Auto) 13 H Urine RBC (Auto) 3 Ur Squamous Epith Cells 20 H Urine Bacteria Rare Urine HCG, Qual Negative Urine Opiates Screen Negative Urine Methadone Screen Negative Ur Barbiturates Screen Negative Ur Phencyclidine Scrn Negative Ur Amphetamines Screen Negative U Benzodiazepines Scrn Negative U Oth Cocaine Metabols Negative U Cannabinoids Screen Positive H Blood Type Antibody Screen 08/18/17 08/18/17 08/18/17 15:15 15:15 15:35 WBC RBC Hgb Hct MCV MCH MCHC RDW Plt Count MPV Neut % (Auto) Lymph % (Auto) [place] % (Auto) Eos % (Auto) Baso % (Auto) Neut # (Auto) Lymph # (Auto) [place] # (Auto) Eos # (Auto) Baso # (Auto) PT INR APTT D-Dimer, Quantitative 996 H Sodium Potassium Chloride Carbon Dioxide Anion Gap BUN Creatinine Est GFR ( Amer) Est GFR (Non-Af Amer) POC Glucose (mg/dL) Random Glucose Hemoglobin A1c 5.7 Calcium Total Bilirubin AST ALT Alkaline Phosphatase Total Creatine Kinase CK-MB (Mass) Troponin I NT-Pro-B Natriuret Pep Total Protein Albumin Globulin Albumin/Globulin Ratio Free T4 0.85 TSH 3rd Generation Beta HCG, Quant Urine Color Urine Clarity Urine pH Ur Specific [place] Urine Protein Urine Glucose (UA) Urine Ketones Urine Blood Urine Nitrate Urine Bilirubin Urine Urobilinogen Ur Leukocyte Esterase Urine WBC (Auto) Urine RBC (Auto) Ur Squamous Epith Cells Urine Bacteria Urine HCG, Qual Urine Opiates Screen Urine Methadone Screen Ur Barbiturates Screen Ur Phencyclidine Scrn Ur Amphetamines Screen U Benzodiazepines Scrn U Oth Cocaine Metabols U Cannabinoids Screen Blood Type Antibody Screen 08/18/17 08/18/17 15:40 20:14 WBC RBC Hgb Hct MCV MCH MCHC RDW Plt Count MPV Neut % (Auto) Lymph % (Auto) [place] % (Auto) Eos % (Auto) Baso % (Auto) Neut # (Auto) Lymph # (Auto) [place] # (Auto) Eos # (Auto) Baso # (Auto) PT INR APTT D-Dimer, Quantitative Sodium Potassium Chloride Carbon Dioxide Anion Gap BUN Creatinine Est GFR ( Amer) Est GFR (Non-Af Amer) POC Glucose (mg/dL) Random Glucose Hemoglobin A1c Calcium Total Bilirubin AST ALT Alkaline Phosphatase Total Creatine Kinase 143 H CK-MB (Mass) < 0.22 Troponin I < 0.0120 NT-Pro-B Natriuret Pep Total Protein Albumin Globulin Albumin/Globulin Ratio Free T4 TSH 3rd Generation 1.40 Beta HCG, Quant Urine Color Urine Clarity Urine pH Ur Specific [place] Urine Protein Urine Glucose (UA) Urine Ketones Urine Blood Urine Nitrate Urine Bilirubin Urine Urobilinogen Ur Leukocyte Esterase Urine WBC (Auto) Urine RBC (Auto) Ur Squamous Epith Cells Urine Bacteria Urine HCG, Qual Urine Opiates Screen Urine Methadone Screen Ur Barbiturates Screen Ur Phencyclidine Scrn Ur Amphetamines Screen U Benzodiazepines Scrn U Oth Cocaine Metabols U Cannabinoids Screen Blood Type Antibody Screen Assessment & Plan - Assessment and Plan (Free Text) Assessment: EKG suggestive of likely percarditis Not a STEMI ECHO: Normal LV function Management of pericarditis as suggested R/O PE (High D dimer)
[2017-08-19 03:40] LABS: CK-MB 0.24 ng/mL (0.0-3.38)
[2017-08-19 08:17] LABS: BASO % 0.4 % (0.0-2.0); EOS # 0.1 K/uL (0.0-0.7); EOS % 1.1 % (0.0-4.0); HEMOGLOBIN 11.8 g/dL (11.0-16.0); LYMPH # 2.2 K/uL (1.0-4.3); LYMPH % 26.1 % (20.0-40.0); MEAN CELL VOLUME 79.3 fL (81.0-99.0); MEAN CORPUSCULAR HEMOGLOBIN 26.4 pg (27.0-31.0); MEAN CORPUSCULAR HGB CONC 33.2 g/dL (33.0-37.0); MEAN PLATELET VOLUME 8.4 fL (7.2-11.7); MONO # 0.5 K/uL (0.0-0.8); MONO % 6.1 % (0.0-10.0); NEUT # 5.5 K/uL (1.8-7.0); NEUT % 66.3 % (50.0-75.0); RBC 4.49 Mil/uL (3.80-5.20); RED CELL DISTRIBUTION WIDTH 15.1 % (11.5-14.5); WHITE BLOOD COUNT 8.2 K/uL (4.8-10.8)
--- NOTE | 2017-08-19 08:20 | CP.PCM.PN ---
<Raina Brennan - Last Filed: 08/19/17 11:19> Subjective - Date & Time of Evaluation Date of Evaluation: 08/19/17 Time of Evaluation: 08:03 - Subjective Subjective: Progress Note Patient seen and examined at bedside. No acute events overnight. Patient states her chest pain is better. Patient feels pain in her upper back that feels like burning. Patient states pain is worse in chest when she leans forward. Patient denies fever, chills, nausea, vomiting. It was discussed at length pre-diabetes, lifestyle changes and ideas for weight loss with patient and mother at bedside. Objective - Vital Signs/Intake and Output Vital Signs (last 24 hours): Temp Pulse Resp BP Pulse Ox 98.5 F 97 H 20 114/76 100 08/19/17 07:50 08/19/17 07:50 08/19/17 07:50 08/19/17 07:50 08/19/17 07:50 Intake and Output: 08/19/17 08/19/17 06:59 18:59 Intake Total 50 Balance 50 - Medications Medications: Current Medications Acetaminophen (Tylenol 325mg Tab) 650 mg PO Q6 PRN PRN Reason: pain, fever Last Admin: 08/18/17 22:05 Dose: 650 mg Aspirin (Aspirin) 325 mg PO BID [facility] Colchicine (Colocrys) 0.6 mg PO DAILY [facility] Last Admin: 08/18/17 18:07 Dose: 0.6 mg Enoxaparin Sodium (Lovenox) 40 mg SC DAILY [facility] Famotidine (Pepcid) 20 mg PO BID [facility] Last Admin: 08/18/17 17:26 Dose: Not Given - Labs Labs: 08/18/17 14:04 08/18/17 14:04 PT 12.7 SECONDS (9.7-12.2) H 08/18/17 14:04 INR 1.1 08/18/17 14:04 APTT 29 SECONDS (21-34) 08/18/17 14:04 - Head Exam Head Exam: ATRAUMATIC, NORMAL INSPECTION, NORMOCEPHALIC - Eye Exam Eye Exam: EOMI, Normal appearance Pupil Exam: NORMAL ACCOMODATION - ENT Exam ENT Exam: Mucous Membranes Moist - Neck Exam Neck Exam: Normal Inspection. absent: Tenderness, Thyromegaly - Respiratory Exam Respiratory Exam: Clear to Ausculation Bilateral, NORMAL BREATHING PATTERN. absent: Accessory Muscle Use - Cardiovascular Exam Cardiovascular Exam: REGULAR RHYTHM, +S1, +S2 Additional comments: positional chest pain. pain with leaning forward - GI/Abdominal Exam GI & Abdominal Exam: Soft, Normal Bowel Sounds. absent: Tenderness - Back Exam Back Exam: Full ROM Additional comments: upper paraspinal muscle back pain at the level of T3-T6 - Neurological Exam Neurological Exam: Alert, Awake, CN II-XII Intact, Oriented x3 - Psychiatric Exam Psychiatric exam: Normal Affect, Normal Mood - Skin Skin Exam: Dry, Intact, Normal Color, Warm Assessment and Plan - Assessment and Plan (Free Text) Assessment: Pericarditis Cardiology consult, Dr. Cho, help appreciated Recommendations as follows: * Aspirin 325 mg PO BID for 1 month * Colchicine 0.6 mg PO daily for 14 days * Pepcid 20 mg PO BID Bedside echo normal ventricular function per cardiology Troponin I negative x 3 UDS: cannabinoids TSH 1.40, Free T4 0.85 f/u Lipid panel DDIMER 996 CTA chest PE protocol shows no large central PE but cannot rule out segmental and subsegmental ones elevated DDIMER f/u Venous duplex: initial read. no DVT in bilateral lower extremities Asymptomatic Bacteruria Repeat UA in the AM Elevated Blood Pressure Possibly due to pain versus essential hypertension Was given Toprol XL 50 mg in the ED Monitor BP Impaired Glucose Tolerance Hemoglobin A1c 5.7 Dietitian Referral Prophylaxis Heart Healthy Diet 2gm sodium Pepcid 20 mg PO BID Lovenox 40 mg SC daily Pain: percocet 5/325 Q6H PRN PAIN Discussed with Dr. Caryn Brennan DO PGY1 <Fawn Rubin V - Last Filed: 08/19/17 15:38> Objective - Vital Signs/Intake and Output Vital Signs (last 24 hours): Temp Pulse Resp BP Pulse Ox 98.5 F 97 H 20 114/76 100 08/19/17 07:50 08/19/17 07:50 08/19/17 07:50 08/19/17 07:50 08/19/17 07:50 Intake and Output: 08/19/17 08/19/17 06:59 18:59 Intake Total 50 Balance 50 - Medications Medications: Current Medications Acetaminophen (Tylenol 325mg Tab) 650 mg PO Q6 PRN PRN Reason: pain, fever Last Admin: 08/18/17 22:05 Dose: 650 mg Aspirin (Aspirin) 325 mg PO BID [facility] Last Admin: 08/19/17 10:50 Dose: 325 mg Colchicine (Colocrys) 0.6 mg PO DAILY [facility] Last Admin: 08/19/17 10:56 Dose: Not Given Enoxaparin Sodium (Lovenox) 40 mg SC DAILY [facility] Last Admin: 08/19/17 10:50 Dose: 40 mg Famotidine (Pepcid) 20 mg PO BID [facility] Last Admin: 08/19/17 10:50 Dose: 20 mg Ketorolac Tromethamine (Toradol) 30 mg IVP ONCE PRN PRN Reason: Pain, moderate (4-7) Oxycodone/Acetaminophen (Percocet 5/325 Mg Tab) 1 tab PO Q6H PRN PRN Reason: Pain, severe (8-10) Stop: 08/22/17 09:41 Last Admin: 08/19/17 11:02 Dose: 1 tab - Labs Labs: 08/19/17 08:00 08/19/17 08:00 PT 12.7 SECONDS (9.7-12.2) H 08/18/17 14:04 INR 1.1 08/18/17 14:04 APTT 29 SECONDS (21-34) 08/18/17 14:04 Attending/Attestation - Attestation I have personally seen and examined this patient.: Yes I have fully participated in the care of the patient.: Yes I have reviewed all pertinent clinical information, including history, physical exam and plan: Yes Notes (Text): Patient seen, examined and case discussed with day-time resident. Patient seen with mother at bedside. Patient allows me to share her medical information with her mother. Patient's chest pain improved, reports mild back pain. Given dose Toradol 30mg IV X1. Education provided about lifestyle modifications and exercise, and encouragement of weight loss. Patient is aware she is pre-diabetic and that she continues to live her life in this management without change she will become diabetic. [facility] came to see her as well. CT angio ruled out central PE and venous dopplers negative for DVts. Awaiting f/u with cardiology prior to discharge planning Assessment/Plan 1) Pericarditis Chest Pain * Cardiology consult, Dr. Cho, help appreciated * Recommendations as follows: * Aspirin 325 mg PO BID for 1 month * Colchicine 0.6 mg PO daily for 14 days * Pepcid 20 mg PO BID * Bedside echo normal ventricular function per cardiology in the emergency room * EKG showing diffuse ST segment elevations in non-specific pattern and first troponin negative * DIANE X3: negative * Lipid Panel: * f/u thyroid studies * CTA chest PE protocol shows no large central PE but cannot rule out segmental and subsegmental ones * Will order gentle IV hydration to prevent contrast induced nephropathy 2) Asymptomatic Bacteruria * Repeat UA in the AM 3) Elevated Blood Pressure * Possibly due to pain versus essential hypertension * Was given Toprol XL 50 mg in the ED * Monitor BP 4) Impaired Glucose Tolerance * Hemoglobin A1c 5.7 * Dietitian Referral * Will need education in terms of lifestyle modifications to prevent overt diabetes 5) Obesity * Lipid panel in AM * Hemoglobin A1c 5.7 * f/u TSH and Free T4 6) Prophylaxis * Heart Healthy Diet 2gm sodium * Pepcid 20 mg PO BID * Lovenox 40 mg SC daily
[2017-08-19 08:31] LABS: ALBUMIN 3.7 g/dL (3.5-5.0); ALT/SGPT 30 U/L (9-52); AST/SGOT 31 U/L (14-36); BLOOD UREA NITROGEN 6 mg/dL (7-17); CALCIUM 8.6 mg/dl (8.6-10.4); GFR AFRICAN-AMERICAN > 60; GFR NON-AFRICAN AMERICAN > 60; HDL CHOLESTEROL 40 mg/dL (30-70)
[2017-08-19 08:42] LABS: LDL CHOLESTEROL 68 mg/dL (0-129)
[2017-08-19] MEDS ORDERED: Oxycodone/Acetaminophen 5/325 mg Tab PO PRN (09:40)
[2017-08-19] MEDS: Enoxaparin 40 mg Syringe SC SCH (10:50)
--- NOTE | 2017-08-19 12:48 | VASCLAB ---
PROCEDURE: Lower Extremity Venous Duplex Exam. HISTORY: Elevated d-dimer, rule out DVT PRIORS: None. TECHNIQUE: Bilateral common femoral, femoral, popliteal and posterior tibial, peroneal and great saphenous veins were evaluated. Flow was assessed with color Doppler, compressibility, assessment of phasic flow and augmentation response. Report prepared by VANDANA Das FINDINGS: RIGHT: 1. Common Femoral Vein: 1.1. Compressibility - Fully compressible: Thrombus - None : Flow - Phasic: Augmentation -Normal: Reflux - None. 2. Femoral Vein: 2.1. Compressibility - Fully compressible: Thrombus - None : Flow - Phasic: Augmentation -Normal: Reflux - None. 3. Popliteal Vein: 3.1. Compressibility - Fully compressible: Thrombus - None : Flow - Phasic: Augmentation -Normal: Reflux - None. 4. Posterior Tibial Vein: 4.1. Compressibility - Fully compressible: Thrombus - None: Flow - Phasic: Augmentation -Normal: Reflux - None. 5. Peroneal Vein: 5.1. Compressibility - Fully compressible: Thrombus - None: Flow - Phasic: Augmentation -Normal: Reflux - None. 6. Great Saphenous Vein: 6.1. Compressibility - Fully compressible: Thrombus - None: Flow - Phasic: Augmentation - Normal: Reflux - None. LEFT: 1. Common Femoral Vein: 1.1. Compressibility - Fully compressible: Thrombus - None: Flow - Phasic: Augmentation -Normal: Reflux - None. 2. Femoral Vein: 2.1. Compressibility - Fully compressible: Thrombus - None: Flow - Phasic: Augmentation -Normal: Reflux - None. 3. Popliteal Vein: 3.1. Compressibility - Fully compressible: Thrombus - None : Flow - Phasic: Augmentation -Normal: Reflux - None. 4. Posterior Tibial Vein: 4.1. Compressibility - Fully compressible: Thrombus - None: Flow - Phasic: Augmentation -Normal: Reflux - None. 5. Peroneal Vein: 5.1. Compressibility - Fully compressible: Thrombus - None: Flow - Phasic: Augmentation -Normal: Reflux - None. 6. Great Saphenous Vein: 6.1. Compressibility - Fully compressible: Thrombus - None: Flow - Phasic: Augmentation - Normal: Reflux - None. OTHER FINDINGS: Right: None significant. Left: None significant. IMPRESSION: Right: No evidence of deep or superficial vein thrombosis of the right lower extremity. Normal valve function noted of the right side. Left: No evidence of deep or superficial vein thrombosis of the left lower extremity. Normal valve function noted of the left side.
--- NOTE | 2017-08-19 14:53 | CARD ---
APPROVED REPORT EXAM: Two-dimensional and M-mode echocardiogram with Doppler and color Doppler. Other Information Quality : GoodRhythm : INDICATION Chest Pain CHECK WALL MOTION 2D DIMENSIONS IVSd1.0 (0.7-1.1cm)LVDd4.3 (3.9-5.9cm) PWd1.2 (0.7-1.1cm)LVDs2.7 (2.5-4.0cm) FS (%) 36.5 %LVEF (%)66.6 (>50%) M-Mode DIMENSIONS RVDd2.37 (2.1-3.2cm)Left Atrium (MM)3.19 (2.5-4.0cm) IVSd1.11 (0.7-1.1cm)Aortic Root2.56 (2.2-3.7cm) LVDd4.86 (4.0-5.6cm)Aortic Cusp Exc.2.00 (1.5-2.0cm) PWd1.00 (0.7-1.1cm)FS (%) 40 % LVDs2.92 (2.0-3.8cm)LVEF (%)70 (>50%) Mitral Valve MV E Cheaxnri19.8cm/sMV A Rnzxeykg05.6cm/sE/A ratio1.1 TDI E/Lateral E'0.0E/Medial E'0.0 Tricuspid Valve TR Peak [id number] Peak [id number] LEFT VENTRICLE The left ventricle is normal size. There is normal left ventricular wall thickness. The left ventricular function is normal. The left ventricular ejection fraction is within the normal range. No regional wall motion abnormalities noted. The left ventricular diastolic function is normal. No left ventricle thrombus noted on this study. There is no ventricular septal defect visualized. There is no left ventricular aneurysm. There is no mass noted in the left ventricle. RIGHT VENTRICLE The right ventricle is normal size. There is normal right ventricular wall thickness. The right ventricular systolic function is normal. ATRIA The left atrium size is normal. The right atrium size is normal. The interatrial septum is intact with no evidence for an atrial septal defect. AORTIC VALVE The aortic valve is normal in structure and function. No aortic regurgitation is present. There is no aortic valvular stenosis. There is no aortic valvular vegetation. MITRAL VALVE The mitral valve is normal in structure and function. There is no evidence of mitral valve prolapse. There is no mitral valve stenosis. There is no mitral valve regurgitation noted. TRICUSPID VALVE The tricuspid valve is normal in structure and function. There is no tricuspid valve regurgitation noted. There is no tricuspid valve prolapse or vegetation. There is no tricuspid valve stenosis. PULMONIC VALVE The pulmonary valve is normal in structure and function. There is no pulmonic valvular regurgitation. There is no pulmonic valvular stenosis. GREAT VESSELS The aortic root is normal in size. The ascending aorta is normal in size. The pulmonary artery is normal. The IVC is normal in size and collapses >50% with inspiration. PERICARDIAL EFFUSION The pericardium appears normal. There is no pleural effusion. <Conclusion> The left ventricular function is normal. The left ventricular ejection fraction is within the normal range. No regional wall motion abnormalities noted.
[2017-08-19 22:15] LABS: SQUAMOUS EPITHIAL 10 /hpf (0-5); URINE BACTERIA RARE (<OCC); URINE BILIRUBIN NEGATIVE (NEGATIVE); URINE BLOOD 1+ (NEGATIVE); URINE CLARITY Hazy (Clear); URINE GLUCOSE (UA) NORMAL (Normal); URINE LEUKOCYTE ESTERASE 2+ Leu/uL (Negative); URINE PROTEIN NEGATIVE (NEGATIVE)
[2017-08-19 22:16] LABS: URINE COLOR YELLOW (YELLOW)
--- NOTE | 2017-08-20 07:55 | CP.PCM.PN ---
<Fawn Rubin V - Last Filed: 08/20/17 09:42> Objective - Vital Signs/Intake and Output Vital Signs (last 24 hours): Temp Pulse Resp BP Pulse Ox 98.2 F 75 20 131/83 98 08/20/17 07:40 08/20/17 08:00 08/20/17 07:40 08/20/17 07:40 08/20/17 07:40 - Medications Medications: Current Medications Acetaminophen (Tylenol 325mg Tab) 650 mg PO Q6 PRN PRN Reason: pain, fever Last Admin: 08/18/17 22:05 Dose: 650 mg Aspirin (Aspirin) 325 mg PO BID [facility] Last Admin: 08/20/17 09:18 Dose: 325 mg Colchicine (Colocrys) 0.6 mg PO DAILY [facility] Last Admin: 08/20/17 09:19 Dose: Not Given Enoxaparin Sodium (Lovenox) 40 mg SC DAILY [facility] Last Admin: 08/20/17 09:18 Dose: 40 mg Famotidine (Pepcid) 20 mg PO BID [facility] Last Admin: 08/20/17 09:18 Dose: 20 mg Ketorolac Tromethamine (Toradol) 15 mg IVP Q6 PRN PRN Reason: Pain, moderate (4-7) Ketorolac Tromethamine (Toradol) 30 mg IVP Q6 PRN PRN Reason: Pain, severe (8-10) Last Admin: 08/20/17 08:44 Dose: 30 mg - Labs Labs: 08/20/17 07:59 08/20/17 07:59 PT 12.7 SECONDS (9.7-12.2) H 08/18/17 14:04 INR 1.1 08/18/17 14:04 APTT 29 SECONDS (21-34) 08/18/17 14:04 Attending/Attestation - Attestation I have personally seen and examined this patient.: Yes I have fully participated in the care of the patient.: Yes I have reviewed all pertinent clinical information, including history, physical exam and plan: Yes Notes (Text): Patient seen, examined and case discussed with day-time resident. Patient seen with mother at bedside. Patient allows me to share her medical information with her mother. Patient's chest pain improved; denies back pain. Discussed with patient, she is now aware that percocet will not reduce the inflammation associated with her pericarditis. Pending Lung scan. Pending: JOSE screen, DNA (DS) Abs, and HIV screen renew telemetry Assessment/Plan 1) Pericarditis Chest Pain * Cardiology consult, Dr. Cho, help appreciated * Recommendations as follows: * Aspirin 325 mg PO BID for 1 month * Colchicine 0.6 mg PO daily for 14 days * Pepcid 20 mg PO BID * Toradol 15mg IVP Q 6H PRN moderate pain * Toradol 30mg IVP Q 6H PRN severe pain * Bedside echo normal ventricular function per cardiology in the emergency room * EKG showing diffuse ST segment elevations in non-specific pattern and first troponin negative * DIANE X3: negative * Lipid Panel: T, Cholesrol: 150, LDL: 68, HDL: 40 * TSH: 1.40, Free T4: 0.85 * Wells' Criteria: 2 (PE equally likely and heart rate >100) on admission)--> moderate risk: 16.2% * CTA chest PE protocol shows no large central PE but cannot rule out segmental and subsegmental ones; no thoracic aneurysm * Pending Lung Scan: pending * Venous doppler (08/19/17): no evidence of deep or superifical vein thrombosis bilateral * Pending: JOSE screen, DNA (DS) Abs, and HIV screen 2) Asymptomatic Bacteruria * Urinalysis: contaminated * Repeat UA 3) Elevated Blood Pressure (resolved) * Possibly due to pain versus essential hypertension * Was given Toprol XL 50 mg in the ED * Monitor vital signs 4) Impaired Glucose Tolerance-->chronic * Hemoglobin A1c 5.7 * Dietitian Referral * Will need education in terms of lifestyle modifications to prevent overt diabetes 5) Obesity-->chronic * Lipid Panel: T, Cholesrol: 150, LDL: 68, HDL: 40 * Hemoglobin A1c 5.7 * TSH: 1.40, Free T4: 0.85 6) Prophylaxis * Heart Healthy Diet 2gm sodium * Pepcid 20 mg PO BID * Lovenox 40 mg SC daily Disposition: Patient is pending Lung Scan for discharge planning. <Raina Brennan - Last Filed: 08/20/17 15:57> Subjective - Date & Time of Evaluation Date of Evaluation: 08/20/17 Time of Evaluation: 07:55 - Subjective Subjective: Progress Note for Dr. Rubin. Patient seen and examined at bedside. No acute events overnight. Patient states her chest burning and back burning after having blood drawn. Patient tolerated pain overnight. Patient denies fever, chills, nausea, vomiting. Patient explained she needed V/Q scan prior to discharge. Objective - Vital Signs/Intake and Output Vital Signs (last 24 hours): Temp Pulse Resp BP Pulse Ox 98.6 F 85 20 119/79 98 08/19/17 23:05 08/20/17 00:55 08/19/17 23:05 08/20/17 04:00 08/19/17 23:05 - Medications Medications: Current Medications Acetaminophen (Tylenol 325mg Tab) 650 mg PO Q6 PRN PRN Reason: pain, fever Last Admin: 08/18/17 22:05 Dose: 650 mg Aspirin (Aspirin) 325 mg PO BID [facility] Last Admin: 08/19/17 18:31 Dose: 325 mg Colchicine (Colocrys) 0.6 mg PO DAILY [facility] Last Admin: 08/19/17 10:56 Dose: Not Given Enoxaparin Sodium (Lovenox) 40 mg SC DAILY [facility] Last Admin: 08/19/17 10:50 Dose: 40 mg Famotidine (Pepcid) 20 mg PO BID [facility] Last Admin: 08/19/17 18:31 Dose: 20 mg Ketorolac Tromethamine (Toradol) 15 mg IVP Q6 PRN PRN Reason: Pain, moderate (4-7) Ketorolac Tromethamine (Toradol) 30 mg IVP Q6 PRN PRN Reason: Pain, severe (8-10) - Labs Labs: 08/19/17 08:00 08/19/17 08:00 PT 12.7 SECONDS (9.7-12.2) H 08/18/17 14:04 INR 1.1 08/18/17 14:04 APTT 29 SECONDS (21-34) 08/18/17 14:04 - Additional Findings Additional findings: - Head Exam Head Exam: ATRAUMATIC, NORMAL INSPECTION, NORMOCEPHALIC - Eye Exam Eye Exam: EOMI, Normal appearance Pupil Exam: NORMAL ACCOMODATION - ENT Exam ENT Exam: Mucous Membranes Moist - Neck Exam Neck Exam: Normal Inspection. absent: Tenderness, Thyromegaly - Respiratory Exam Respiratory Exam: Clear to Ausculation Bilateral, NORMAL BREATHING PATTERN. absent: Accessory Muscle Use - Cardiovascular Exam Cardiovascular Exam: REGULAR RHYTHM, +S1, +S2 Additional comments: positional chest pain. pain with leaning forward - GI/Abdominal Exam GI & Abdominal Exam: Soft, Normal Bowel Sounds. absent: Tenderness - Back Exam Back Exam: Full ROM Additional comments: upper paraspinal muscle back pain at the level of T3-T6 - Neurological Exam Neurological Exam: Alert, Awake, CN II-XII Intact, Oriented x3 - Psychiatric Exam Psychiatric exam: Normal Affect, Normal Mood - Skin Skin Exam: Dry, Intact, Normal Color, Warm Assessment and Plan - Assessment and Plan (Free Text) Assessment: Pericarditis Cardiology consult, Dr. Cho, help appreciated Recommendations as follows: * Aspirin 325 mg PO BID for 1 month * Colchicine 0.6 mg PO daily for 14 days * Pepcid 20 mg PO BID Bedside echo normal ventricular function per cardiology Troponin I negative x 3 UDS: cannabinoids TSH 1.40, Free T4 0.85 Lipid Panel: normal range CRP 154.50 ESR 40 DDIMER 996 CTA chest PE protocol shows no large central PE but cannot rule out segmental and subsegmental ones VQ scan ordered, f/u elevated DDIMER Venous duplex: initial read. no DVT in bilateral lower extremities Asymptomatic Bacteruria repeat UA 08/19: leukocyte esterase, increased blood, negative nitrates Elevated Blood Pressure Possibly due to pain versus essential hypertension Was given Toprol XL 50 mg in the ED Monitor BP Impaired Glucose Tolerance Hemoglobin A1c 5.7 Dietitian Referral Prophylaxis Heart Healthy Diet 2gm sodium Pepcid 20 mg PO BID Lovenox 40 mg SC daily Pain: Toradol 15 mg IVP, Toradol 30 mg IVP Discussed with Dr. Rubin Per Dr. Cho: patient to be discharged on ASA 325 mg BID for 1 month, colchicine 0.6 mg PO QD x 2 weeks, Pepcid 20mg PO QD x 1 month Raina Brennan DO PGY1
[2017-08-20 08:11] LABS: BASO % 0.6 % (0.0-2.0); EOS # 0.1 K/uL (0.0-0.7); EOS % 1.8 % (0.0-4.0); HEMOGLOBIN 11.5 g/dL (11.0-16.0); LYMPH # 2.5 K/uL (1.0-4.3); LYMPH % 37.2 % (20.0-40.0); MEAN CELL VOLUME 80.4 fL (81.0-99.0); MEAN CORPUSCULAR HGB CONC 32.4 g/dL (33.0-37.0); MEAN PLATELET VOLUME 8.6 fL (7.2-11.7); MONO # 0.4 K/uL (0.0-0.8); MONO % 5.4 % (0.0-10.0); NEUT # 3.7 K/uL (1.8-7.0); RBC 4.41 Mil/uL (3.80-5.20); RED CELL DISTRIBUTION WIDTH 15.7 % (11.5-14.5); WHITE BLOOD COUNT 6.8 K/uL (4.8-10.8)
[2017-08-20 08:59] LABS: ALB/GLOB RATIO 0.9 (1.0-2.1); ALBUMIN 3.7 g/dL (3.5-5.0); ALT/SGPT 41 U/L (9-52); AST/SGOT 45 U/L (14-36); BLOOD UREA NITROGEN 6 mg/dL (7-17); CALCIUM 8.8 mg/dl (8.6-10.4); GFR AFRICAN-AMERICAN > 60; GFR NON-AFRICAN AMERICAN > 60
[2017-08-20] MEDS: Enoxaparin 40 mg Syringe SC SCH (09:18)
[2017-08-20 12:42] LABS: SQUAMOUS EPITHIAL 9 /hpf (0-5); URINE BACTERIA RARE (<OCC); URINE BILIRUBIN NEGATIVE (NEGATIVE); URINE BLOOD NEGATIVE (NEGATIVE); URINE CLARITY Hazy (Clear); URINE COLOR Yellow (YELLOW); URINE GLUCOSE (UA) NORMAL (Normal); URINE LEUKOCYTE ESTERASE 3+ Leu/uL (Negative); URINE PROTEIN NEGATIVE (NEGATIVE)
[2017-08-21 08:04] LABS: BASO % 0.8 % (0.0-2.0); EOS # 0.2 K/uL (0.0-0.7); EOS % 2.9 % (0.0-4.0); HEMOGLOBIN 11.7 g/dL (11.0-16.0); LYMPH # 1.8 K/uL (1.0-4.3); LYMPH % 30.5 % (20.0-40.0); MEAN CELL VOLUME 79.7 fL (81.0-99.0); MEAN CORPUSCULAR HEMOGLOBIN 26.3 pg (27.0-31.0); MEAN PLATELET VOLUME 8.5 fL (7.2-11.7); MONO # 0.3 K/uL (0.0-0.8); NEUT # 3.4 K/uL (1.8-7.0); NEUT % 59.8 % (50.0-75.0); NRBC % 0.1 % (0.0-2.0); RBC 4.45 Mil/uL (3.80-5.20); RED CELL DISTRIBUTION WIDTH 15.4 % (11.5-14.5); WHITE BLOOD COUNT 5.8 K/uL (4.8-10.8)
[2017-08-21 08:14] LABS: ALB/GLOB RATIO 0.9 (1.0-2.1); ALBUMIN 3.6 g/dL (3.5-5.0); ALT/SGPT 52 U/L (9-52); AST/SGOT 72 U/L (14-36); BLOOD UREA NITROGEN 8 mg/dL (7-17); CALCIUM 8.7 mg/dl (8.6-10.4); GFR AFRICAN-AMERICAN > 60; GFR NON-AFRICAN AMERICAN > 60
[2017-08-21] MEDS: Enoxaparin 40 mg Syringe SC SCH (09:46)
--- NOTE | 2017-08-21 12:00 | RAD ---
Chest x-ray single frontal view History: V/Q protocol. Comparison: 08/18/2017 Findings: Mild venous congestion. Patchy linear consolidative changes at both lung bases ; left greater than right. Small nodular density at the right lung base. Heart size within normal limits. Impression: Mild venous congestion. Patchy linear consolidative changes at both lung bases ; left greater than right. Small nodular density at the right lung base.
--- NOTE | 2017-08-21 13:44 | CP.PCM.PN ---
<Oswaldo Kay - Last Filed: 08/21/17 13:45> Subjective - Date & Time of Evaluation Date of Evaluation: 08/21/17 Time of Evaluation: 09:35 - Subjective Subjective: PGY2 Cardiology progress note for Dr. Cho. Patient seen and examined at bedside. No acute distress. Patient denies chest pain, SOB, LE edema, dizziness, or any additional acute complaints. 12-point ROS is otherwise negative. Objective - Vital Signs/Intake and Output Vital Signs (last 24 hours): Temp Pulse Resp BP Pulse Ox 97.7 F 100 H 20 134/87 94 L 08/21/17 08:11 08/21/17 08:11 08/21/17 08:11 08/21/17 08:11 08/21/17 08:11 - Medications Medications: Current Medications Acetaminophen (Tylenol 325mg Tab) 650 mg PO Q6 PRN PRN Reason: pain, fever Last Admin: 08/18/17 22:05 Dose: 650 mg Aspirin (Aspirin) 325 mg PO BID [facility] Last Admin: 08/21/17 09:45 Dose: 325 mg Colchicine (Colocrys) 0.6 mg PO DAILY [facility] Last Admin: 08/21/17 09:49 Dose: Not Given Enoxaparin Sodium (Lovenox) 40 mg SC DAILY [facility] Last Admin: 08/21/17 09:46 Dose: Not Given Famotidine (Pepcid) 20 mg PO BID [facility] Last Admin: 08/21/17 09:45 Dose: 20 mg Ketorolac Tromethamine (Toradol) 15 mg IVP Q6 PRN PRN Reason: Pain, moderate (4-7) Ketorolac Tromethamine (Toradol) 30 mg IVP Q6 PRN PRN Reason: Pain, severe (8-10) Last Admin: 08/20/17 08:44 Dose: 30 mg - Labs Labs: 08/21/17 07:48 08/21/17 07:48 PT 12.7 SECONDS (9.7-12.2) H 08/18/17 14:04 INR 1.1 08/18/17 14:04 APTT 29 SECONDS (21-34) 08/18/17 14:04 - Additional Findings Additional findings: - Head Exam Head Exam: ATRAUMATIC, NORMAL INSPECTION, NORMOCEPHALIC - Eye Exam Eye Exam: EOMI, Normal appearance Pupil Exam: NORMAL ACCOMODATION - ENT Exam ENT Exam: Mucous Membranes Moist - Neck Exam Neck Exam: Normal Inspection. absent: Tenderness, Thyromegaly - Respiratory Exam Respiratory Exam: Clear to Ausculation Bilateral, NORMAL BREATHING PATTERN. absent: Accessory Muscle Use - Cardiovascular Exam Cardiovascular Exam: REGULAR RHYTHM, +S1, +S2 Note: chest wall tenderness (diffuse, 2/2 coughing); upper back TTP - GI/Abdominal Exam GI & Abdominal Exam: Soft, Normal Bowel Sounds. absent: Tenderness - Back Exam Back Exam: Full ROM - Neurological Exam Neurological Exam: Alert, Awake, CN II-XII Intact, Oriented x3 - Psychiatric Exam Psychiatric exam: Normal Affect, Normal Mood - Skin Skin Exam: Dry, Intact, Normal Color, Warm Assessment and Plan - Assessment and Plan (Free Text) Assessment: Pericarditis /: R/O PE; LE duplex negative; CT chest cannot r/o PE due to limited exam. No large central or lobar pulm embolus identified. See full report. Continue medications as follows for Pericarditis -Aspirin 325 mg PO BID for 1 month -Colchicine 0.6 mg PO daily for 14 days -EKG suggestive of likely percarditis -Not a STEMI -ECHO: Normal LV function -DIANE X3: negative -Lipid Panel: T, Cholesrol: 150, LDL: 68, HDL: [address] Marquis Kay, PGY2 <Chaim Cho - Last Filed: 08/21/17 15:03> Objective - Vital Signs/Intake and Output Vital Signs (last 24 hours): Temp Pulse Resp BP Pulse Ox 97.7 F 100 H 20 134/87 94 L 08/21/17 08:11 08/21/17 08:11 08/21/17 08:11 08/21/17 08:11 08/21/17 08:11 Intake and Output: 08/21/17 08/21/17 06:59 18:59 Intake Total 800 Balance 800 - Medications Medications: Current Medications Acetaminophen (Tylenol 325mg Tab) 650 mg PO Q6 PRN PRN Reason: pain, fever Last Admin: 08/18/17 22:05 Dose: 650 mg Aspirin (Aspirin) 325 mg PO BID [facility] Last Admin: 08/21/17 09:45 Dose: 325 mg Colchicine (Colocrys) 0.6 mg PO DAILY [facility] Last Admin: 08/21/17 09:49 Dose: Not Given Enoxaparin Sodium (Lovenox) 40 mg SC DAILY [facility] Last Admin: 08/21/17 09:46 Dose: Not Given Famotidine (Pepcid) 20 mg PO BID [facility] Last Admin: 08/21/17 09:45 Dose: 20 mg Ketorolac Tromethamine (Toradol) 15 mg IVP Q6 PRN PRN Reason: Pain, moderate (4-7) Ketorolac Tromethamine (Toradol) 30 mg IVP Q6 PRN PRN Reason: Pain, severe (8-10) Last Admin: 08/20/17 08:44 Dose: 30 mg - Labs Labs: 08/21/17 07:48 08/21/17 07:48 PT 12.7 SECONDS (9.7-12.2) H 08/18/17 14:04 INR 1.1 08/18/17 14:04 APTT 29 SECONDS (21-34) 08/18/17 14:04 Assessment and Plan - Assessment and Plan (Free Text) Plan: cardiac point of view stable ASA 325 po bid for 1 month calchicine o.6mg po daily for 2 weeks Stomach protection F/U in [facility] [place] Recommend VQ scan prior to discharge I will sign off Thank you
--- NOTE | 2017-08-21 17:37 | CP.PCM.PN ---
Subjective - Date & Time of Evaluation Date of Evaluation: 08/21/17 Time of Evaluation: 09:40 - Subjective Subjective: PGY1 Medicine Note for Dr. Amanda Jason Patient seen and examined this morning at bedside. No acute events overnight. Patient is resting comfortably in her bed with no complaints. She reports that she is feeling will and would like to go home soon if possible. Patient is tolerating her diet and has no complaints at this time. Denies fevers, chills, nausea, vomiting, diarrhea, constipation, chest pain, shortness of breath, difficulty sleeping, abdominal pain or headaches. Objective - Vital Signs/Intake and Output Vital Signs (last 24 hours): Temp Pulse Resp BP Pulse Ox 97.7 F 100 H 20 134/87 94 L 08/21/17 08:11 08/21/17 08:11 08/21/17 08:11 08/21/17 08:11 08/21/17 08:11 Intake and Output: 08/21/17 08/21/17 06:59 18:59 Intake Total 800 Balance 800 - Medications Medications: Current Medications Acetaminophen (Tylenol 325mg Tab) 650 mg PO Q6 PRN PRN Reason: pain, fever Last Admin: 08/18/17 22:05 Dose: 650 mg Aspirin (Aspirin) 325 mg PO BID [facility] Last Admin: 08/21/17 09:45 Dose: 325 mg Colchicine (Colocrys) 0.6 mg PO DAILY [facility] Last Admin: 08/21/17 09:49 Dose: Not Given Enoxaparin Sodium (Lovenox) 40 mg SC DAILY [facility] Last Admin: 08/21/17 09:46 Dose: Not Given Famotidine (Pepcid) 20 mg PO BID [facility] Last Admin: 08/21/17 09:45 Dose: 20 mg Ketorolac Tromethamine (Toradol) 15 mg IVP Q6 PRN PRN Reason: Pain, moderate (4-7) Ketorolac Tromethamine (Toradol) 30 mg IVP Q6 PRN PRN Reason: Pain, severe (8-10) Last Admin: 08/20/17 08:44 Dose: 30 mg - Labs Labs: 08/21/17 07:48 08/21/17 07:48 PT 12.7 SECONDS (9.7-12.2) H 08/18/17 14:04 INR 1.1 08/18/17 14:04 APTT 29 SECONDS (21-34) 08/18/17 14:04 - Constitutional Appears: Non-toxic, No Acute Distress - Head Exam Head Exam: ATRAUMATIC, NORMOCEPHALIC - Eye Exam Eye Exam: EOMI, Normal appearance. absent: Scleral icterus - ENT Exam ENT Exam: Mucous Membranes Moist - Respiratory Exam Respiratory Exam: Clear to Ausculation Bilateral, NORMAL BREATHING PATTERN. absent: Accessory Muscle Use, Rales, Rhonchi, Wheezes, Respiratory Distress - Cardiovascular Exam Cardiovascular Exam: REGULAR RHYTHM, +S1, +S2 Additional comments: No chest pain on palpation, position change or with leaning forward. - GI/Abdominal Exam GI & Abdominal Exam: Soft, Normal Bowel Sounds. absent: Distended, Firm, Guarding, Rigid, Tenderness - Extremities Exam Extremities Exam: absent: Calf Tenderness, Pedal Edema - Neurological Exam Neurological Exam: Alert, Awake, CN II-XII Intact, Oriented x3 - Psychiatric Exam Psychiatric exam: Normal Affect, Normal Mood - Skin Skin Exam: Dry, Warm Assessment and Plan - Assessment and Plan (Free Text) Plan: Pericarditis Cardiology consult, Dr. Cho, help appreciated Recommendations as follows: * Aspirin 325 mg PO BID for 1 month * Colchicine 0.6 mg PO daily for 14 days * Pepcid 20 mg PO BID Bedside echo normal ventricular function per cardiology Troponin I negative x 3 UDS: cannabinoids TSH 1.40, Free T4 0.85 Lipid Panel: normal range CRP 154.50 ESR 40 DDIMER 996 f/u lupus testing - JOSE screen, DNA DS Abs * Patient informed that she will need to have close follow up as tests will likely not be resulted by the time she is discharged. HIV Screening - reactive + (patient had negative test on 08/19 - so test may be a false positive). * repeat screen and f/u confirmatory test (PCR and western blot) * Patient was informed of screening test results. Denies hx of IV drug abuse. She states that she has been in a monogamous relationship for the past 8 years with her boyfriend. They have not used condoms throughout the duration of their relationship. She has never been during this time although they have been trying to get . Patient was informed that her fertility may need to be worked up as an outpatient. CTA chest - no large central PE but cannot rule out segmental and subsegmental ones VQ scan - f/u awaiting official report elevated DDIMER Venous duplex: initial read. no DVT in bilateral lower extremities Asymptomatic Bacteruria repeat UA 08/19: leukocyte esterase, increased blood, negative nitrates * urine culture is positive for gram positive cocci, <10,000 * since patient does not have any symptoms, increased frequency, pain with urination or discharge, patient is to not be treated. Elevated Blood Pressure Possibly due to pain versus essential hypertension Was given Toprol XL 50 mg in the ED Monitor BP Impaired Glucose Tolerance Hemoglobin A1c 5.7 Dietitian Referral Prophylaxis Heart Healthy Diet 2gm sodium Pepcid 20 mg PO BID Lovenox 40 mg SC daily Pain: Toradol 15 mg IVP, Toradol 30 mg IVP DISPO: Patient is to be discharged home following results of VQ scan. Per Dr. Cho: patient to be discharged on ASA 325 mg BID for 1 month, colchicine 0.6 mg PO QD x 2 weeks, Pepcid 20mg PO QD x 1 month. Case discussed with Dr. Amnada Kunz Modesta PGY1
--- NOTE | 2017-08-21 18:05 | CP.PCM.DIS ---
Provider - Provider Date of Admission: 08/18/17 14:52 Attending physician: Ron Jason MD Consults: Cardiology - Marquis Time Spent in preparation of Discharge (in minutes): 45 Hospital Course - Lab Results Lab Results: Micro Results 08/20/17 12:20 Urine,Clean Catch Urine Culture - Final Gram Positive Cocci Most Recent Lab Values WBC 5.8 K/uL (4.8-10.8) 08/21/17 07:48 RBC 4.45 Mil/uL (3.80-5.20) 08/21/17 07:48 Hgb 11.7 g/dL (11.0-16.0) 08/21/17 07:48 Hct 35.5 % (34.0-47.0) 08/21/17 07:48 MCV 79.7 fL (81.0-99.0) L 08/21/17 07:48 MCH 26.3 pg (27.0-31.0) L 08/21/17 07:48 MCHC 33.0 g/dL (33.0-37.0) 08/21/17 07:48 RDW 15.4 % (11.5-14.5) H 08/21/17 07:48 Plt Count 318 K/uL (130-400) 08/21/17 07:48 MPV 8.5 fL (7.2-11.7) 08/21/17 07:48 Neut % (Auto) 59.8 % (50.0-75.0) 08/21/17 07:48 Lymph % (Auto) 30.5 % (20.0-40.0) 08/21/17 07:48 [place] % (Auto) 6.0 % (0.0-10.0) 08/21/17 07:48 Eos % (Auto) 2.9 % (0.0-4.0) 08/21/17 07:48 Baso % (Auto) 0.8 % (0.0-2.0) 08/21/17 07:48 Neut # (Auto) 3.4 K/uL (1.8-7.0) 08/21/17 07:48 Lymph # (Auto) 1.8 K/uL (1.0-4.3) 08/21/17 07:48 [place] # (Auto) 0.3 K/uL (0.0-0.8) 08/21/17 07:48 Eos # (Auto) 0.2 K/uL (0.0-0.7) 08/21/17 07:48 Baso # (Auto) 0.0 K/uL (0.0-0.2) 08/21/17 07:48 ESR 56 mm/hr (0-20) H 08/20/17 10:05 PT 12.7 SECONDS (9.7-12.2) H 08/18/17 14:04 INR 1.1 08/18/17 14:04 APTT 29 SECONDS (21-34) 08/18/17 14:04 D-Dimer, Quantitative 996 ng/mlDDU (0-243) H 08/18/17 15:15 Sodium 141 mmol/L (132-148) 08/21/17 07:48 Potassium 3.9 mmol/L (3.6-5.2) 08/21/17 07:48 Chloride 105 mmol/L (98-107) 08/21/17 07:48 Carbon Dioxide 23 mmol/L (22-30) 08/21/17 07:48 Anion Gap 16 (10-20) 08/21/17 07:48 BUN 8 mg/dL (7-17) 08/21/17 07:48 Creatinine 0.6 mg/dL (0.7-1.2) L 08/21/17 07:48 Est GFR ( Amer) > 60 08/21/17 07:48 Est GFR (Non-Af Amer) > 60 08/21/17 07:48 POC Glucose (mg/dL) 88 mg/dL (65-110) 08/18/17 13:52 Random Glucose 87 mg/dL (65-105) 08/21/17 07:48 Hemoglobin A1c 5.7 % (4.2-6.5) 08/18/17 15:15 Calcium 8.7 mg/dl (8.6-10.4) 08/21/17 07:48 Phosphorus 3.8 mg/dL (2.5-4.5) 08/21/17 07:48 Magnesium 1.9 mg/dL (1.6-2.3) 08/21/17 07:48 Total Bilirubin 0.5 mg/dL (0.2-1.3) 08/21/17 07:48 AST 72 U/L (14-36) H D 08/21/17 07:48 ALT 52 U/L (9-52) D 08/21/17 07:48 Alkaline Phosphatase 77 U/L (38-126) 08/21/17 07:48 Total Creatine Kinase 123 U/L (30-135) 08/19/17 03:13 CK-MB (Mass) 0.24 ng/mL (0.0-3.38) 08/19/17 03:13 Troponin I < 0.0120 ng/mL (0.00-0.120) 08/19/17 03:13 C-Reactive Protein 154.50 mg/L (0.0-9.9) H 08/19/17 15:59 NT-Pro-B Natriuret Pep 131 pg/mL (0-450) 08/18/17 14:04 Total Protein 7.5 g/dL (6.3-8.3) 08/21/17 07:48 Albumin 3.6 g/dL (3.5-5.0) 08/21/17 07:48 Globulin 3.9 gm/dL (2.2-3.9) 08/21/17 07:48 Albumin/Globulin Ratio 0.9 (1.0-2.1) L 08/21/17 07:48 Triglycerides 114 mg/dL (0-149) 08/19/17 08:00 Cholesterol 150 mg/dL (0-199) 08/19/17 08:00 LDL Cholesterol Direct 68 mg/dL (0-129) 08/19/17 08:00 HDL Cholesterol 40 mg/dL (30-70) 08/19/17 08:00 Free T4 0.85 ng/dL (0.78-2.19) 08/18/17 15:35 TSH 3rd Generation 1.40 mIU/L (0.46-4.68) 08/18/17 15:40 Beta HCG, Quant < 2.39 mIU/ML 08/18/17 14:04 Urine Color Yellow (YELLOW) 08/20/17 12:24 Urine Clarity Hazy (Clear) 08/20/17 12:24 Urine pH 6.0 (5.0-8.0) 08/20/17 12:24 Ur Specific Una 1.020 (1.003-1.030) 08/20/17 12:24 Urine Protein Negative mg/dL (NEGATIVE) 08/20/17 12:24 Urine Glucose (UA) Normal mg/dL (Normal) 08/20/17 12:24 Urine Ketones Negative mg/dL (NEGATIVE) 08/20/17 12:24 Urine Blood Negative (NEGATIVE) 08/20/17 12:24 Urine Nitrate Negative (NEGATIVE) 08/20/17 12:24 Urine Bilirubin Negative (NEGATIVE) 08/20/17 12:24 Urine Urobilinogen 4.0 mg/dL (0.2-1.0) H 08/20/17 12:24 Ur Leukocyte Esterase 3+ Arnol/uL (Negative) H 08/20/17 12:24 Urine WBC (Auto) 32 /hpf (0-5) H 08/20/17 12:24 Urine RBC (Auto) 3 /hpf (0-3) 08/20/17 12:24 Ur Squamous Epith Cells 9 /hpf (0-5) H 08/20/17 12:24 Urine Bacteria Rare (<OCC) 08/20/17 12:24 Urine HCG, Qual Negative (NEGATIVE) 08/18/17 14:32 Urine Opiates Screen Negative (NEGATIVE) 08/18/17 14:32 Urine Methadone Screen Negative (NEGATIVE) 08/18/17 14:32 Ur Barbiturates Screen Negative (NEGATIVE) 08/18/17 14:32 Ur Phencyclidine Scrn Negative (NEGATIVE) 08/18/17 14:32 Ur Amphetamines Screen Negative (NEGATIVE) 08/18/17 14:32 U Benzodiazepines Scrn Negative (NEGATIVE) 08/18/17 14:32 U Oth Cocaine Metabols Negative (NEGATIVE) 08/18/17 14:32 U Cannabinoids Screen Positive (NEGATIVE) H 08/18/17 14:32 HIV 1&2 Ag/Ab, 4th Gen Nonreactive (Nonreactive) 08/19/17 19:34 HIV 1&2 Antibody Screen Reactive (NEGATIVE) 08/21/17 14:25 Blood Type AB POSITIVE 08/18/17 14:04 Antibody Screen Negative 08/18/17 14:04 - Hospital Course Hospital Course: As per admission documentation This is a 27 year old female with no significant PMHx who presented with left sided chest pain. Patient states that this began on Wednesday as she was waiting for the bus. Pain has been constant since then and has escalated to 10/ 10. Pain is described as a pressure like sensation without radiation. This is worsened with laying down. Patient is more comfortable sitting upright, and pain was relieved with when given aspirin. Patient states that she has some baseline dyspnea with exertion. She stated that she cannot walk far without getting short of breath. Patient does not sleep with more than one pillow at night and denied snoring. Patient reports that she had some chills yesterday and has a mild dry cough today. Patient denies other sick symptoms. Hospital Course Patient was initially called a CODE Heart. The code heart was later cancelled and patient was admitted for Pericarditis. Cardiology, Dr. Cho, was consulted. EKG showing diffuse ST segment elevations in non-specific pattern. ECHO 08/18/17 - LVEF ~70%, normal ventricular function, no abnormal wall movements. Troponin negative x 3. Patient was started on Aspirin 325 mg PO BID for 1 month, Colchicine 0.6 mg PO daily for 14 days and Pepcid 20 mg PO BID. Elevated D-Dimer at 996. CTA chest - no large central PE but cannot rule out segmental and subsegmental ones Venous duplex - no DVT in bilateral lower extremities Since patient is young and was found to have pericarditis, some viral causes were tested for. Lupus - JOSE screen and DNA DS Anit-bodies. Patient was instructed that she will need to follow up with her PMD as an out patient as these results have not returned prior to her being discharged. Patient was also tested for HIV. She first had a HIV 1&2 Ag/Ab, 4th Gen drawn on 08/19, but this test takes multiple days to return a result. This HIV 4th gen test was originally not seen and a rapid HIV 1&2 Antibody Screen was ordered. The rapid HIV 1&2 Antibody Screen came reactive (positive) on 08/21/17. Patient was informed of the test result and questioned about her sexual history and social history. Patient denies any IV drug use in the past and stated that she was in a monogamous relationship with her boyfriend for 8 years. Later in the day on 08/21, the HIV 1&2 Ag/Ab, 4th Gen resulted and showed non-reactive (negative). After some research, it was found that the HIV 1&2 Ag/Ab, 4th Gen is a more specific test and there for should be the trusted result. It was also found that due to high levels of inflammation associated with the patient's pericarditis, there is a cross reaction with the rapid HIV 1&2 Antibody Screen that can result in a false positive. The patient was informed of the new test results and she was extremely relieved. We had already ordered the confirmatory tests both western blot and PCR for HIV. Patient was told she would need to follow up to confirm the test results that we believe to be true, that the patient does not have HIV. Patient's chest pain and shortness of breath had resulted by 08/21/17. There was discussions about a possible VQ scan to rule out segmental PEs but the patient' s vital signs were stable and no longer complained of shortness of breath. All her symptoms had resolved. She was discharged late in the afternoon on 08/21 after the discovery of the HIV 1&2 Ag/Ab, 4th Gen test result being negative. She was discharged with the following instructions. Discharge Instructions The following instructions should be provided to patient upon her discharge: 1). When you come to hospital tomorrow to complete your Medicaid paperwork, make sure to go to [facility] of [facility] to schedule an appointment with [facility] for Monday or Monday of next week. [facility] phone number is [phone]. Through this health center you will need to follow up the results of HIV testing and testing for Lupus. This health center can also be your primary care health providers and help to coordinate your health care. 2). Until you have confirmed your HIV test results with the [facility], please make sure that you and partner are practicing safe sex by using a condom. 3). The following prescriptions were provided to you. Please have them filled at your pharmacy on your way home from the hospital. Please use as directed: ASA 325 mg, 1 tablet by mouth 2x/day (breakfast and dinner) for 30 days Colchicine 0.6 mg, 1 tablet by mouth 1x/day (lunch) for 14 days Pepcid 20 mg, 1 tablet by mouth 2x/day (breakfast and dinner) for 30 days 4). Please make sure that you follow the above instructions. Failure to do so will cause serious harm to your health. 5). Please take care and be well. This is just a brief summary of the patient's hospital course. Please see EMR for full detail. Physical Exam - Constitutional Appears: Non-toxic, No Acute Distress - Head Exam Head Exam: ATRAUMATIC, NORMOCEPHALIC - Eye Exam Eye Exam: EOMI, Normal appearance. absent: Scleral icterus - ENT Exam ENT Exam: Mucous Membranes Moist - Respiratory Exam Respiratory Exam: Clear to Ausculation Bilateral, NORMAL BREATHING PATTERN. absent: Accessory Muscle Use, Rales, Rhonchi, Wheezes, Respiratory Distress - Cardiovascular Exam Cardiovascular Exam: REGULAR RHYTHM, +S1, +S2 Additional comments: No chest pain on palpation, position change or with leaning forward. - GI/Abdominal Exam GI & Abdominal Exam: Soft, Normal Bowel Sounds. absent: Distended, Firm, Guarding, Rigid, Tenderness - Extremities Exam Extremities Exam: absent: Calf Tenderness, Pedal Edema - Neurological Exam Neurological Exam: Alert, Awake, CN II-XII Intact, Oriented x3 - Psychiatric Exam Psychiatric exam: Normal Affect, Normal Mood - Skin Skin Exam: Dry, Warm Discharge Exam - Head Exam Head Exam: ATRAUMATIC, NORMOCEPHALIC Discharge Plan - Discharge Medications Prescriptions: Aspirin 325 mg PO BID #60 tab Colchicine 0.6 mg PO DAILY #14 tablet Famotidine [Pepcid] 20 mg PO BID 30 Days tab - Follow Up Plan Condition: GOOD Disposition: HOME/ ROUTINE Instructions: Chest Pain (DC), Aspirin, Colchicine, Famotidine Additional Instructions: The following instructions should be provided to patient upon her discharge: 1). When you come to hospital tomorrow to complete your Medicaid paperwork, make sure to go to [facility] of [facility] to schedule an appointment with [facility] for Monday or Monday of next week. The [facility] 's phone number is [phone]. Through this health center you will need to follow up the results of HIV testing and testing for Lupus. This health center can also be your primary care health providers and help to coordinate your health care. 2). Until you have confirmed your HIV test results with the [facility], please make sure that you and partner are practicing safe sex by using a condom. 3). The following prescriptions were provided to you. Please have them filled at your pharmacy on your way home from the hospital. Please use as directed: ASA 325 mg, 1 tablet by mouth 2x/day (breakfast and dinner) for 30 days Colchicine 0.6 mg, 1 tablet by mouth 1x/day (lunch) for 14 days Pepcid 20 mg, 1 tablet by mouth 2x/day (breakfast and dinner) for 30 days 4). Please make sure that you follow the above instructions. Failure to do so will cause serious harm to your health. 5). Please take care and be well. Ron Jason D.O.
[2017-08-21 19:07] VITALS: BP 146/88; PULSE 92; TEMP 97.9; O2SAT 99
--- NOTE | 2017-08-21 21:09 | CARD ---
APPROVED REPORT EKG Measurement Heart [id number] <Conclusion> Normal sinus rhythm Cannot rule out Inferior infarct, age undetermined Lateral injury pattern ACUTE GA / STEMI Abnormal ECG
--- NOTE | 2017-08-21 21:10 | CARD ---
APPROVED REPORT EKG Measurement Heart [id number] <Conclusion> Suspect arm lead reversal, interpretation assumes no reversal Unusual P axis, possible ectopic atrial rhythm Lateral infarct, age undetermined Inferior infarct, age undetermined Abnormal ECG
== END 2017-08-21 19:30 | disposition home or self-care (01) | DRG 316 ==
LOC: C.ER 13:23 → C.9E 14:52 → C.6T 15:42
PROVIDERS: ADMIT Family Medicine; ATTEND Family Medicine
DX: I31.9 Disease of pericardium, unspecified (principal); E66.9 Obesity, unspecified; F12.90 Cannabis use, unspecified, uncomplicated; R73.03 Prediabetes; R79.1 Abnormal coagulation profile; R82.71 Bacteriuria; I10 Essential (primary) hypertension; Z68.39 Body mass index [BMI] 39.0-39.9, adult

== ENCOUNTER 2018-02-05 10:30 | Observation (INO) | payer MEDICAID, OTHER ==
--- NOTE | 2018-02-05 10:53 | C.PDOC ---
History Of Present Illness 27 years old female with PMHx of pericarditis presents to ED for complaints of constant mid-sternal chest pain that radiates to back and shoulder that began 3 days ago. Patient states she was referred to see a lead pony rider by her PMD on Monday but has not seen one. Patient describes pain worsens when laying flat. Patient was admitted for pericarditis in August and was treated, results of echo done shows normal LV function. Denies sweating, nausea, shortness of breath, nausea, vomiting, dizziness, or history of asthma. Patient states taking one dose of 800mg ibuprofen today but no aspirin. Patient also states taking "small " dose of aspirin 3 days ago. Patient also reports symptoms are similar but not as bad as previous. Time Seen by Provider: 02/05/18 10:41 Chief Complaint (Nursing): Chest Pain History Per: Patient History/Exam Limitations: no limitations Onset/Duration Of Symptoms: Hrs, Persistent Current Symptoms Are (Timing): Still Present Associated Symptoms: denies: Nausea Modifying Factors: None Exacerbating Factors: None Alleviating Factors: None Recent travel outside of the [place]: No Past Medical History Reviewed: Historical Data, Nursing Documentation, Vital Signs Vital Signs: Last Vital Signs Temp 98.7 F 02/05/18 10:43 Pulse 101 H 02/05/18 10:51 Resp 20 02/05/18 10:43 BP 122/91 H 02/05/18 10:51 Pulse Ox 98 02/05/18 11:16 - Medical History PMH: Pericarditis Surgical History: No Surg Hx Family History: States: Unknown Family Hx - Social History Hx Alcohol Use: Yes (Social drinker) Hx Substance Use: Yes (marijuana) - Immunization History Hx Tetanus Toxoid Vaccination: Yes Hx Influenza Vaccination: No Hx Pneumococcal Vaccination: No Review Of Systems Constitutional: Negative for: Fever, Chills, Sweats Cardiovascular: Positive for: Chest Pain (Mid-sternal, radiates to back and shoulder ) Respiratory: Negative for: Shortness of Breath Gastrointestinal: Negative for: Nausea, Vomiting, Abdominal Pain, Diarrhea Skin: Negative for: Rash Neurological: Negative for: Dizziness Physical Exam - Physical Exam Appears: Non-toxic, No Acute Distress Skin: Normal Color, Warm, Dry, No Rash Head: Atraumatic, Normacephalic Eye(s): bilateral: Normal Inspection, PERRL, EOMI Oral Mucosa: Moist Neck: Normal ROM, Supple Chest: Symmetrical, No Tenderness Cardiovascular: Rhythm Regular, No Murmur Respiratory: Normal Breath Sounds, No Decreased Breath Sounds, No Rales, No Wheezing Gastrointestinal/Abdominal: Bowel Sounds (Active ), Soft, No Tenderness, No Guarding, No Rebound Extremity: Normal ROM, No Pedal Edema, No Deformity Extremity: Bilateral: Atraumatic, Normal Color And Temperature, Normal ROM Neurological/Psych: Oriented x3, Normal Speech Gait: Steady ED Course And Treatment - Laboratory Results Result Diagrams: 02/05/18 12:27 02/05/18 11:05 O2 Sat by Pulse Oximetry: 98 (RA) Pulse Ox Interpretation: Normal Medical Decision Making Medical Decision Making: Ordered CRP, echo and erythrocyte sedimentation rate Spoke with Dr. Light, not code heart, will admit, needs echo, admission, spoke with Dr. Rausch, call or contact centre manager. Disposition Discussed With : Nena Rausch Counseled Patient/Family Regarding: Studies Performed, Diagnosis - Disposition Disposition: HOSPITALIZED Disposition Time: 11:16 Condition: STABLE Forms: [facility] (P[place]) - POA Present On Arrival: None - Clinical Impression Clinical Impression: Chest discomfort, Pericarditis - Scribe Statement The provider has reviewed the documentation as recorded by the Scribe Rosibel Espinosa All medical record entries made by the Scribe were at my direction and personally dictated by me. I have reviewed the chart and agree that the record accurately reflects my personal performance of the history, physical exam, medical decision making, and the department course for this patient. I have also personally directed, reviewed, and agree with the discharge instructions and disposition. Decision To Admit - Pt Status Changed To: Hospital Disposition Of: Observation - . Bed Request Type: Telemetry Admitting Physician: Nena Rausch Patient Diagnosis: Chest discomfort, Pericarditis
[2018-02-05 12:35] LABS: BASO % 0.3 % (0.0-2.0); EOS # 0.1 K/uL (0.0-0.7); EOS % 0.6 % (0.0-4.0); HEMOGLOBIN 10.6 g/dL (11.0-16.0); LYMPH # 1.9 K/uL (1.0-4.3); LYMPH % 21.7 % (20.0-40.0); MEAN CELL VOLUME 80.4 fL (81.0-99.0); MEAN CORPUSCULAR HEMOGLOBIN 26.8 pg (27.0-31.0); MEAN CORPUSCULAR HGB CONC 33.4 g/dL (33.0-37.0); MEAN PLATELET VOLUME 7.9 fL (7.2-11.7); MONO # 0.5 K/uL (0.0-0.8); NEUT # 6.3 K/uL (1.8-7.0); NEUT % 71.4 % (50.0-75.0); NRBC % 0.1 % (0.0-2.0); RBC 3.95 Mil/uL (3.80-5.20); RED CELL DISTRIBUTION WIDTH 15.3 % (11.5-14.5); WHITE BLOOD COUNT 8.8 K/uL (4.8-10.8)
--- NOTE | 2018-02-05 13:27 | CP.PCM.PN ---
<RaghujvWindy - Last Filed: 02/05/18 13:35> Subjective - Date & Time of Evaluation Date of Evaluation: 02/05/18 Time of Evaluation: 13:26 - Subjective Subjective: PGY3 progress note for Dr. Rausch's service 27 year old female with past medical history of pericarditis diagnosed in 2017 present [facility] for substernal chest pain ongoing for 3 days. IN July of 2017, pt was diagnosed with pericarditis. She was seen by hadoop java developer , Dr. Cho while in hospital and echo at the time showed normal LV EF and structure. Patient also had workup for viral pericarditis which was negative for lupus and HIV. PMHx: stated above PSHx: right eyelid surgery in 2017 Allergies: NKDA Social: Denies tobacco, social drinker on the weekends. Uses marijuana. 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 Family Hx: Patient is unsure of her biological family history. PMD: denies Home meds: Aspirin, Advil Objective - Vital Signs/Intake and Output Vital Signs (last 24 hours): Temp Pulse Resp BP Pulse Ox 98.7 F 88 20 128/75 97 02/05/18 10:43 02/05/18 13:11 02/05/18 13:11 02/05/18 13:11 02/05/18 13:11 - Labs Labs: 02/05/18 12:27 <Nguyen Escamilla - Last Filed: 02/05/18 14:16> Objective - Vital Signs/Intake and Output Vital Signs (last 24 hours): Temp Pulse Resp BP Pulse Ox 98.7 F 88 20 128/75 97 02/05/18 10:43 02/05/18 13:11 02/05/18 13:11 02/05/18 13:11 02/05/18 13:11 - Medications Medications: Current Medications Acetaminophen (Tylenol 325mg Tab) 650 mg PO Q6 PRN PRN Reason: Fever >100.4 F Aspirin (Ecotrin) 325 mg PO STAT STA Stop: 02/05/18 14:12 Enoxaparin Sodium (Lovenox) 40 mg SC DAILY KOBY Famotidine (Pepcid) 20 mg PO BID KOBY - Labs Labs: 02/05/18 12:27 02/05/18 11:05 Addendum Addendum: 02/05/18 14:15 Patient with elevated DDimes, same on last admission. Inpatient team aware
[2018-02-05 13:34] LABS: ALBUMIN 3.9 g/dL (3.5-5.0); ALT/SGPT 17 U/L (9-52); AST/SGOT 17 U/L (14-36); BLOOD UREA NITROGEN 6 mg/dL (7-17); GFR NON-AFRICAN AMERICAN > 60
[2018-02-05 13:47] LABS: B-TYPE NATRIURETIC PEPTIDE 61.1 pg/mL (0-450)
[2018-02-05] MEDS ORDERED: Aspirin 325 mg EC Tablets PO STA (14:11)
[2018-02-05] MEDS ORDERED: Aspirin 325 mg EC Tablets PO ONE (14:26)
[2018-02-05 15:58] VITALS: RESP 20
[2018-02-05 17:13] LABS: CK-MB < 0.22 ng/mL (0.0-3.38)
--- NOTE | 2018-02-05 18:00 | CARD ---
APPROVED REPORT Date of service: 02/05/2018 EXAM: Two-dimensional and M-mode echocardiogram with Doppler and color Doppler. Other Information Quality : GoodRhythm : INDICATION Chest Pain Palpitations ST elevations 2D DIMENSIONS IVSd0.9 (0.7-1.1cm)Aortic Root (2D)2.8 (2.0-3.7cm) LVDd4.7 (3.9-5.9cm)PWd1.0 (0.7-1.1cm) LVDs2.8 (2.5-4.0cm)FS (%) 41.3 % LVEF (%)72.1 (>50%) M-Mode DIMENSIONS RVDd3.19 (2.1-3.2cm)Left Atrium (MM)3.62 (2.5-4.0cm) IVSd1.04 (0.7-1.1cm)Aortic Root2.54 (2.2-3.7cm) LVDd4.30 (4.0-5.6cm)Aortic Cusp Exc.1.94 (1.5-2.0cm) PWd1.37 (0.7-1.1cm)FS (%) 44 % LVDs2.41 (2.0-3.8cm)LVEF (%)75 (>50%) Mitral Valve MV E Hlxqfcpj144.7cm/sMV A Lmggayhu65.4cm/sE/A ratio1.1 TDI E/Lateral E'0.0E/Medial E'0.0 Tricuspid Valve TR Peak Muzgcnzl515tu/sTR Peak Gr.[id number] LEFT VENTRICLE The left ventricle is normal size. There is normal left ventricular wall thickness. The left ventricular function is normal. The left ventricular ejection fraction is 57%. No regional wall motion abnormalities noted. The left ventricular diastolic function is normal. No left ventricle thrombus noted on this study. There is no ventricular septal defect visualized. There is no left ventricular aneurysm. There is no mass noted in the left ventricle. RIGHT VENTRICLE The right ventricle is normal size. There is normal right ventricular wall thickness. The right ventricular systolic function is normal. ATRIA The left atrium size is normal. The right atrium size is normal. The interatrial septum is intact with no evidence for an atrial septal defect. AORTIC VALVE The aortic valve is normal in structure and function. No aortic regurgitation is present. There is no aortic valvular stenosis. There is no aortic valvular vegetation. MITRAL VALVE The mitral valve is normal in structure and function. There is no evidence of mitral valve prolapse. There is no mitral valve stenosis. There is no mitral valve regurgitation noted. TRICUSPID VALVE The tricuspid valve is normal in structure and function. There is no tricuspid valve regurgitation noted. There is no tricuspid valve prolapse or vegetation. There is no tricuspid valve stenosis. PULMONIC VALVE The pulmonary valve is normal in structure and function. There is no pulmonic valvular regurgitation. There is no pulmonic valvular stenosis. GREAT VESSELS The aortic root is normal in size. The ascending aorta is normal in size. The pulmonary artery is normal. The IVC is normal in size and collapses >50% with inspiration. PERICARDIAL EFFUSION A trivial pericardial effusion is noted. There is no pleural effusion. <Conclusion> Normal left ventricular systolic function and wall motion. A trivial pericardial effusion is noted. Normal Doppler.
[2018-02-05] MEDS: Pantoprazole 40 mg EC Tab PO SCH (18:01)
--- NOTE | 2018-02-05 18:13 | CP.PCM.CON ---
History of Present Illness - History of Present Illness History of Present Illness: consultation for chest pain since monday Review of Systems - Review of Systems Systems not reviewed;Unavailable: Acuity of Condition - Constitutional Constitutional: As Per HPI - EENT Eyes: As Per HPI Ears: As Per HPI Nose/Mouth/Throat: As Per HPI - Breasts Breasts: As Per HPI - Cardiovascular Cardiovascular: As Per HPI - Respiratory Respiratory: As Per HPI - Gastrointestinal Gastrointestinal: As Per HPI - Genitourinary Genitourinary: As Per HPI - Reproductive: Female Reproductive:Female: As Per HPI - Menstruation Menstruation: As Per HPI - Musculoskeletal Musculoskeletal: As Per HPI - Integumentary Integumentary: As Per HPI - Neurological Neurological: As Per HPI - Psychiatric Psychiatric: As Per HPI - Endocrine Endocrine: As Per HPI Past Patient History - Infectious Disease Hx of Infectious Diseases: None - Past Social History Smoking Status: Never Smoked - MUSCULOSKELETAL/RHEUMATOLOGICAL Hx Falls: No - PSYCHIATRIC Hx Substance Use: Yes (marijuana) - SURGICAL HISTORY Hx Surgeries: No - ANESTHESIA Hx Anesthesia: No Meds Allergies/Adverse Reactions: Allergies Allergy/AdvReac Type Severity Reaction Status Date / Time No Known Allergies Allergy Verified 02/05/18 10:46 - Medications Medications: Current Medications Acetaminophen (Tylenol 325mg Tab) 650 mg PO Q6 PRN PRN Reason: Fever >100.4 F Aspirin (Ecotrin) 325 mg PO DAILY [facility] Enoxaparin Sodium (Lovenox) 40 mg SC DAILY [facility] Ibuprofen (Motrin Tab) 600 mg PO BID PRN PRN Reason: Pain, moderate (4-7) Pantoprazole Sodium (Protonix Ec Tab) 40 mg PO DAILY [facility] Last Admin: 02/05/18 18:01 Dose: 40 mg Physical Exam - Constitutional Appears: Well - Head Exam Head Exam: ATRAUMATIC, NORMAL INSPECTION, NORMOCEPHALIC - Eye Exam Eye Exam: EOMI, Normal appearance, PERRL Pupil Exam: NORMAL ACCOMODATION, PERRL - ENT Exam ENT Exam: Mucous Membranes Moist, Normal Exam - Neck Exam Neck exam: Positive for: Normal Inspection - Respiratory Exam Respiratory Exam: Clear to Auscultation Bilateral, NORMAL BREATHING PATTERN - Cardiovascular Exam Cardiovascular Exam: REGULAR RHYTHM - GI/Abdominal Exam GI & Abdominal Exam: Normal Bowel Sounds, Soft. absent: Tenderness - Extremities Exam Extremities exam: Positive for: normal inspection - Back Exam Back exam: NORMAL INSPECTION - Neurological Exam Neurological exam: Alert, CN II-XII Intact, Normal Gait, Oriented x3, Reflexes Normal - Psychiatric Exam Psychiatric exam: Normal Affect, Normal Mood - Skin Skin Exam: Dry, Intact, Normal Color, Warm Results - Vital Signs Recent Vital Signs: Last Vital Signs Temp 98 F 02/05/18 15:57 Pulse 91 H 02/05/18 15:57 Resp 20 02/05/18 15:57 BP 131/77 02/05/18 15:57 Pulse Ox 98 02/05/18 15:57 - Labs Result Diagrams: 02/05/18 12:27 02/05/18 11:05 Labs: Laboratory Results - last 24 hr 02/05/18 02/05/18 02/05/18 11:05 11:05 12:27 WBC 8.8 D RBC 3.95 Hgb 10.6 L Hct 31.8 L MCV 80.4 L MCH 26.8 L MCHC 33.4 RDW 15.3 H Plt Count 285 MPV 7.9 Neut % (Auto) 71.4 Lymph % (Auto) 21.7 [place] % (Auto) 6.0 Eos % (Auto) 0.6 Baso % (Auto) 0.3 Neut # (Auto) 6.3 Lymph # (Auto) 1.9 [place] # (Auto) 0.5 Eos # (Auto) 0.1 Baso # (Auto) 0.0 ESR 20 D-Dimer, Quantitative Sodium 142 Potassium 3.7 Chloride 107 Carbon Dioxide 19 L Anion Gap 20 BUN 6 L Creatinine 0.7 Est GFR ( Amer) > 60 Est GFR (Non-Af Amer) > 60 Random Glucose 122 H Calcium 9.0 Total Bilirubin 0.6 AST 17 ALT 17 Alkaline Phosphatase 80 Total Creatine Kinase CK-MB (Mass) Troponin I < 0.0120 C-Reactive Protein 84.70 H NT-Pro-B Natriuret Pep 61.1 Total Protein 7.7 Albumin 3.9 Globulin 3.8 Albumin/Globulin Ratio 1.0 02/05/18 02/05/18 12:27 16:33 WBC RBC Hgb Hct MCV MCH MCHC RDW Plt Count MPV Neut % (Auto) Lymph % (Auto) [place] % (Auto) Eos % (Auto) Baso % (Auto) Neut # (Auto) Lymph # (Auto) [place] # (Auto) Eos # (Auto) Baso # (Auto) ESR D-Dimer, Quantitative 942 H Sodium Potassium Chloride Carbon Dioxide Anion Gap BUN Creatinine Est GFR ( Amer) Est GFR (Non-Af Amer) Random Glucose Calcium Total Bilirubin AST ALT Alkaline Phosphatase Total Creatine Kinase 91 CK-MB (Mass) < 0.22 Troponin I < 0.0120 C-Reactive Protein NT-Pro-B Natriuret Pep Total Protein Albumin Globulin Albumin/Globulin Ratio Assessment & Plan (1) Costochondral chest pain Status: Acute (2) Chest discomfort Status: Acute (3) Chest pain Status: Acute
[2018-02-05 21:26] LABS: BARBITURATES, UR NEGATIVE (NEGATIVE); BENZODIAZEPINES, UR NEGATIVE (NEGATIVE); OPIATES, UR NEGATIVE (NEGATIVE); PHENCYCLIDINE, UR NEGATIVE (NEGATIVE)
[2018-02-05] MEDS ORDERED: Tramadol 25 mg PO PRN (23:00)
[2018-02-06 00:10] LABS: CK-MB < 0.22 ng/mL (0.0-3.38)
[2018-02-06 06:41] LABS: BASO % 0.4 % (0.0-2.0); EOS # 0.1 K/uL (0.0-0.7); EOS % 1.1 % (0.0-4.0); HEMOGLOBIN 10.8 g/dL (11.0-16.0); LYMPH # 2.7 K/uL (1.0-4.3); LYMPH % 30.8 % (20.0-40.0); MEAN CELL VOLUME 80.4 fL (81.0-99.0); MEAN CORPUSCULAR HEMOGLOBIN 26.7 pg (27.0-31.0); MEAN CORPUSCULAR HGB CONC 33.2 g/dL (33.0-37.0); MEAN PLATELET VOLUME 8.3 fL (7.2-11.7); MONO # 0.5 K/uL (0.0-0.8); MONO % 5.6 % (0.0-10.0); NEUT # 5.5 K/uL (1.8-7.0); NEUT % 62.1 % (50.0-75.0); RBC 4.04 Mil/uL (3.80-5.20); RED CELL DISTRIBUTION WIDTH 15.4 % (11.5-14.5); WHITE BLOOD COUNT 8.9 K/uL (4.8-10.8)
[2018-02-06 07:37] LABS: ALB/GLOB RATIO 1.1 (1.0-2.1); ALBUMIN 3.7 g/dL (3.5-5.0); ALT/SGPT 28 U/L (9-52); AST/SGOT 24 U/L (14-36); BLOOD UREA NITROGEN 8 mg/dL (7-17); CALCIUM 8.5 mg/dl (8.6-10.4); GFR NON-AFRICAN AMERICAN > 60
[2018-02-06 08:21] VITALS: BP 130/88; PULSE 99; TEMP 98.3; O2SAT 95
--- NOTE | 2018-02-06 09:14 | CP.PCM.PN ---
Subjective - Date & Time of Evaluation Date of Evaluation: 02/06/18 Time of Evaluation: 09:14 - Subjective Subjective: Progress note for Dr. Rausch's service Patient was seen and examined at bedside in no acute distress. Patient reports feeling better than yesterday, and states that most of her symptoms have resolved. She complains of intermittent left shoulder and back pain, but says it has improved. She otherwise has no complaints and denies chest pain, palpitations, pain with respiration, dyspnea, cough, abdominal pain, nausea, vomiting, fevers, headaches, dizziness, dysuria, constipation, and diarrhea. Objective - Vital Signs/Intake and Output Vital Signs (last 24 hours): Temp Pulse Resp BP Pulse Ox 98.3 F 99 H 20 130/88 95 02/06/18 08:19 02/06/18 08:19 02/06/18 08:19 02/06/18 08:19 02/06/18 08:19 Intake and Output: 02/06/18 02/06/18 06:59 18:59 Intake Total 240 Balance 240 - Medications Medications: Current Medications Acetaminophen (Tylenol 325mg Tab) 650 mg PO Q6 PRN PRN Reason: Fever >100.4 F Aspirin (Ecotrin) 325 mg PO DAILY [facility] Enoxaparin Sodium (Lovenox) 40 mg SC DAILY [facility] Ibuprofen (Motrin Tab) 800 mg PO Q12H PRN PRN Reason: pain Last Admin: 02/06/18 06:39 Dose: 800 mg Pantoprazole Sodium (Protonix Ec Tab) 40 mg PO DAILY [facility] Last Admin: 02/05/18 18:01 Dose: 40 mg Tramadol HCl (Ultram) 25 mg PO HS PRN PRN Reason: Pain, severe (8-10) Tramadol HCl (Ultram) 50 mg PO TID PRN PRN Reason: pain Last Admin: 02/06/18 04:58 Dose: 50 mg - Labs Labs: 02/06/18 06:30 02/06/18 06:30 - Constitutional Appears: No Acute Distress - Head Exam Head Exam: ATRAUMATIC, NORMAL INSPECTION - Eye Exam Eye Exam: EOMI, Normal appearance - ENT Exam ENT Exam: Mucous Membranes Moist - Respiratory Exam Respiratory Exam: Clear to Ausculation Bilateral, NORMAL BREATHING PATTERN. absent: Rales, Rhonchi, Wheezes, Respiratory Distress - Cardiovascular Exam Cardiovascular Exam: REGULAR RHYTHM, +S1, +S2. absent: Bradycardia, Tachycardia - GI/Abdominal Exam GI & Abdominal Exam: Soft, Normal Bowel Sounds. absent: Distended, Firm, Guarding, Tenderness, Mass - Extremities Exam Extremities Exam: Normal Inspection. absent: Pedal Edema, Tenderness Additional comments: Left Trapezius muscle spasm and tenderness to palpation - Neurological Exam Neurological Exam: Alert, Awake, Oriented x3 - Psychiatric Exam Psychiatric exam: Normal Affect, Normal Mood - Skin Skin Exam: Dry, Intact, Normal Color, Warm Assessment and Plan - Assessment and Plan (Free Text) Assessment: Patient is stable for discharge to home per Dr. Rausch. Patient must take the following medications as directed: 1. Aspirin 325mg PO daily- take 1 tablet by mouth daily 2. Colchicine 0.6mg PO BID- take 1 tablet by mouth twice a day (AM and PM) Patient must follow up with [employer] language professor, Dr. Light, within one week of discharge. Patient must follow up with PMD within one week of discharge. Instructions and prescriptions were provided and discussed with the patient and patient agrees and understands. If symptoms worsen or reoccur, patient instructed to return to nearest ED. Hospital Course: 1. Pericarditis - Cardiology, Dr. Light consulted. Recommended getting echo - Echo done at bedside- showed normal LV systolic function and wall motion, trivial pericardial effusion noted; normal doppler - Serial trops and EKG- negative - Aspirin 325 mg PO stat. Continued Aspirin 325 mg po BID - Will continue Ibuprofen 800 mg PO Q12h prn for pain - Of note: On previous admission in 07/2017, pt was diagnosed with pericarditis. Workup for lupus associated pericarditis was negative. Pt was also checked for HIV 4th gen Ab which was negative but due to a false positive HIV 1&2 Ab pt was asked to follow up with PMD for confirmatory testing. Pt never followed up due to insurance issues. Patient was also asked to continue Aspirin 325 mg po bid and colchicine 0.6 mg po qd which she never did due to insurance issues. Patient has also not followed up with [employer]ian language professor after discharge in 07/2017. 2. Elevated D dimer - On admission, d dimer was 942. - On previous admission, pt also had elevated d dimer (996). In 07/2017 CT of chest was negative for PE and VQ scan done afew days later showed low probability for PE. - LE Dopplers were also negative in 07/2017 for DVT - Seeing as D dimer is same as last visit, PE is less likely 3. Prophylaxis - Protonix - Lovenox - SCDs All management per Dr. Rausch.
[2018-02-06] MEDS ORDERED: Aspirin 325 mg EC Tablets PO SCH (10:00)
[2018-02-06] MEDS ORDERED: Enoxaparin 40 mg Syringe SC SCH (10:00)
[2018-02-06] MEDS: Pantoprazole 40 mg EC Tab PO SCH (10:42)
--- NOTE | 2018-02-06 11:47 | CARD ---
APPROVED REPORT Date of service: 02/05/2018 EKG Measurement Heart [id number] <Conclusion> Normal sinus rhythm Inferior infarct, possibly acute Lateral injury pattern ACUTE IA / STEMI Abnormal ECG
--- NOTE | 2018-02-07 06:39 | HP ---
HISTORY OF PRESENT ILLNESS: A 27-year-old female who presents to the hospital with chief complaint of chest pain, weakness. The patient has history of pericarditis in the past, followup. The patient came to the hospital, advised admission. PHYSICAL EXAMINATION: GENERAL: The patient is awake, alert, oriented. VITAL SIGNS: Temperature 98, pulse 90. HEENT: Within normal limit. NECK: Supple. CHEST: Symmetrical. HEART: Regular. ABDOMEN: Soft. EXTREMITIES: No edema. IMPRESSION: The patient suffers from pericarditis. The patient is n.p.o. Cardiology consult. Nena Rausch MD
== END 2018-02-06 14:10 | disposition home or self-care (01) ==
LOC: C.ER 10:30 → C.9E 13:08 → C.6T 14:26
PROVIDERS: ADMIT Internal Medicine Pulmonary Disease; ATTEND Internal Medicine Pulmonary Disease
DX: I31.9 Disease of pericardium, unspecified (principal); R07.1 Chest pain on breathing; R79.1 Abnormal coagulation profile; F12.90 Cannabis use, unspecified, uncomplicated; Z79.82 Long term (current) use of aspirin
CPT/HCPCS: 36415; 80053; 80324; 80345; 80346; 80349; 80353; 80358; 80361; 83880; 83992; 84484; 85025; 85378; 85651; 86140; 87389; 93005; 93306; 99285; G0378